=== PATIENT | female | born 1965 | race Caucasian/White ===

== ENCOUNTER 2023-10-27 20:07 | Outpatient (REF) | payer OTHER, SELFPAY ==
[2023-11-02 10:10] LABS: Age Gdln ACOG Testing Note (.); HPV Aptima Negative (Negative); IGP, Aptima HPV, rfx 16/18,45 Note (.)
== END 2023-10-27 20:08 | disposition home or self-care (01) ==
LOC: LAB 20:07
PROVIDERS: Visit Provider Physician Assistant
DX: Z01.419 Encounter for gynecological examination (general) (routine) without abnormal findings (principal)
CPT/HCPCS: 87624; G0145

== ENCOUNTER 2024-11-06 20:13 | Outpatient (OUT) | payer OTHER, SELFPAY ==
[2024-11-09 10:11] LABS: Age Gdln ACOG Testing Note (.); HPV Aptima Negative (Negative); IGP, Aptima HPV, rfx 16/18,45 Note (.)
== END 2024-11-06 20:14 | disposition home or self-care (01) ==
PROVIDERS: Visit Provider Obstetrics & Gynecology
DX: Z01.419 Encounter for gynecological examination (general) (routine) without abnormal findings (principal)
CPT/HCPCS: 87624; 88175

== ENCOUNTER 2025-06-20 14:21 | Outpatient (OUT) | payer OTHER, SELFPAY ==
--- OUTSIDE RECORDS SUMMARY | 2025-06-20 14:26 | XMS_ITS | Clinical Summary ---
Author Organization [employer] tem Address [id number] [place] [address] Care Team Providers Care Physical Therapy Director Name Role Phone Alex Holguin MD Primary Care Provider [phone] Allergies Active Allergy Reactions Criticality Noted Date Comments Adhesive Tape-Silicones Dermatitis Medium 11/07/2018 Redness, irritation Zolpidem Palpitations High 07/29/2017 Amoxicillin-Pot Clavulanate Other (See Comments) Medium 12/09/2018 Yeast infection Medications LORazepam (ATIVAN) 0.5 mg tabletIndications:An xiety TAKE 1-2 TABLET BY MOUTH EVERY 12 HOURS NEEDED FOR ANXIETY 90 tablet 3 12/25/19 22 Active Additional Information Patient not taking.Reported on 05/17/2024 vit 10-iron fum-folic 65-1 mg tabletIndications:Mo rbid obesity (CMS-HCC),Preop testing Take 1 tablet by mouth in the morning. Wait to resume until after follow up with your surgeon. 90 tablet 3 05/19/20 23 Active acetaminophen (TYLENOL EXTRA STRENGTH) 500 mg tablet Take 2 tablets (1,000 mg total) by mouth every 6 (six) hours as needed for pain. 30 tablet 05/19/20 23 Active cholecalciferol, vitamin D3, 50,000 units tabletIndications:Po stsurgical malabsorption,Malnut rition following gastrointestinal surgery,History of bariatric surgery,Vitamin D deficiency Take 1 tablet (50,000 Units total) by mouth once a week. 12 tablet 05/24/20 23 Active CLARITIN REDITABS 10 mg disintegrating tablet DISSOLVE 1 TABLET (10 MG TOTAL) ON TONGUE IN THE MORNING. 30 tablet 2 06/11/20 23 Active amLODIPine (NORVASC) 5 mg tablet TAKE 1 TABLET (5 MG TOTAL) BY MOUTH IN THE MORNING 30 tablet 2 06/11/20 23 Active calcium citrate-vitamin D3 (CITRACAL+D) 315-200 mg-units per tablet Take 1 tablet by mouth in the morning and 1 tablet before bedtime. Active cyanocobalamin, vitamin B-12, (VITAMIN B-12 ORAL) Take by mouth. Active multivit-min/ferrous fumarate (MULTI VITAMIN ORAL) Take by mouth. A ctive simvastatin (ZOCOR) 20 mg tablet Take 1 tablet (20 mg total) by mouth in the morning. Active potassium gluconate 600 mg (99 mg) tablet Take 1 each by mouth in the morning. Active biotin 1,000 mcg tablet,chewable Chew and swallow. Active vit 10-iron fum-folic 65-1 mg tabletIndications:Ma lnutrition following gastrointestinal surgery,Postsurgical malabsorption,Histor y of sleeve gastrectomy Take 1 tablet by mouth in the morning. 90 tablet 3 05/17/20 24 Active Active Problems Problem Noted Date Diagnosed Date Malnutrition following gastrointestinal surgery 08/16/2023 Postsurgical malabsorption 08/16/2023 History of bariatric surgery 08/16/2023 Acute post-operative pain 05/19/2023 Morbid obesity due to excess calories 05/18/2023 Morbid obesity 05/05/2023 Other chest pain 04/09/2022 BPPV (benign paroxysmal positional vertigo) 12/30 Hearing loss 01/08/2021 Tinnitus of both ears 01/08/2021 Spasm of muscle of lower back 12/27/2019 Annual physical exam 12/27/2019 Acute non-recurrent maxillary sinusitis 11/02/19 20 Congestion of both ears 11/02/2019 Thyroid mass 08/07/2019 Overview (08/07/2019): Pt request repeat US end of year before proceeding with BX Lymphedema of right arm 08/02/2019 Overview (08/02/2019): Post breast cancer surgery CINV (chemotherapy-induced nausea and vomiting) 12/20/2018 Malignant neoplasm of right female breast 2018 Recurrent breast cancer 10/17/2018 Vitamin D deficiency 07/29/2017 Iron deficiency anemia due to chronic blood loss 07/29/2017 Malignant neoplasm of upper- inner quadrant of right female breast 02/15/2017 Cancer Staging:Clinical: Unsigned Anxiety Obesity Peripheral neuropathy Allergic rhinitis Resolved Problems Problem Noted Date Diagnosed Date Resolved Date Left ventricular failure 09/19/2019 Overview (09/19/2019): Onset Date: Feb 17, 2016 Breast carcinoma 11/08/2018 01/04/2020 Acute pain of right shoulder 11/07/2018 08/04/2019 Acute pain of right knee 11/07/201801/2019 Prolonged emergence from general anesthesia 01/04/2020 Immunizations Immunization Administration Dates Next Due COVID-19, mRNA, LNP-S, PF, 1 00mcg/0.5mL Dose 12/18/2020,11/20/2020 Hep B, Adolescent or Pediatric 01/14/2015,2013,07/16/2014 Influenza, Injectable, quadrivalent (PF) 022,08/20/2021 Influenza, Unspecified 10/19/2018 Pneumococcal Polysaccharide 01/24/2018 Family History Medical History Relation Name Comments Cancer Father Bladder and par otid Diabetes Father Heart disease Father Hypertension Father Pancreatic cancer Father Prostate cancer Father Skin cancer Father Basal and squam ous Cancer Maternal Grandfather Brain cancer Mother Mets from breas t cancer Breast cancer Mother Prostate cancer Paternal Grandfather Heart disease Paternal Grandmother Anesthesia problems Neg Hx Bleeding Disorder Neg Hx Clotting disorder Neg Hx Colon cancer Neg Hx Ovarian cancer Neg Hx Stroke Neg Hx Relation Name Status Comments Father Maternal Grandfather Maternal Grandmother Mother Paternal Grandfather Paternal Grandmother Sister Alive Social History Tobacco Use Types Packs/Day Years Used Date Smoking Tobacco: Former Cigarettes 1 2 0 05/01/1996 - 05/01/1998 Smokeless Tobacco: Never Tobacco Cessation:Counseling Given: No Alcohol Use Standard Drinks/Week Comments Not Currently 0 (1 standard drink = 0.6 oz pur e alcohol) monthly -2 monthly Social Connection and Isolation Panel [NHANES] A nswer Date Recorded In a typical week, how many times do you talk on the phone with family, friends, or neighbors? Three times a week 11/18/19 21 Frequency of Social Gatherin gs with Friends and Family Not on file 11/18/2020 How often do you attend chur ch or oriental orthodox services? Never 11/18/2020 Active Member of Clubs or Organizations Not on f ile 11/18/2020 How often do you attend meet ings of the clubs or organizations you belong to? 1 to 4 times per year 11/18/2020 Marital Status Not on file 11/18/2020 AUDIT-C Answer Date Recorded Q1: How often do you have a drink containing alc ohol? Monthly or less 05/18/2023 Q2: How many drinks containi ng alcohol do you have on a typical day when you are drinking? 1 or 2 05/18/2023 Q3: How often do you have si x or more drinks on one occasion? Never 05/18/2023 Overall Financial Resource Strain (CARDIA) Answe r Date Recorded How hard is it for you to pa y for the very basics like food, housing, medical care, and heating? Not very hard 05/17/2023 PHQ-2 Answer Date Recorded Total Score 2 05/18/2023 [facility] - Occupational Stress Questionnaire Answer Date Recorded Feeling of Stress Rather much 04/25/2019 Exercise Vital Sign Answer Date Recorde d On average, how many days pe r week do you engage in moderate to strenuous exercise (like a brisk walk)? 0 days 11/18/2020 On average, how many minutes do you engage in exercise at this level? 0 min 11/18/2020 PRAPARE - Transportation Answer Date Re corded In the past 12 months, has l ack of transportation kept you from medical appointments or from getting medications? No 05/01 In the past 12 months, has l ack of transportation kept you from meetings, work, or from getting things needed for daily living? No 05/17/2023 Housing Instability Answer Date Recorde d Are you worried or concerned that in the next two months you may not have stable housing that you own, rent or stay in as a part of a household? No 05/17/2023 Childcare Answer Date Recorded Do problems getting child ca re make it difficult for you to work or study? No 11/18/2020 Employment Answer Date Recorded Do you need help finding a [facility] and/or a training program? No 11/18/2020 Hunger Screening Answer Date Recorded Within the past 12 months we worried whether our food would run out before we got money to buy more. Never True 05/17/2024 Within the past 12 months th e food we bought just didn't last and we didn't have money to get more. Never True 05/17/2024 Purpose - Life Answer Date Recorded I have a purpose and direction in my life. Stron gly Agree 11/18/2020 Education Answer Date Recorded What is the highest level of school you have completed or the highest degree you have received? Associate degree: occupational, technical, or vocational program 04/25/2019 Comments No Sex and Gender Information Value Date Recorded Sex Assigned at Female 09/16/2021 8:56 AM EST Legal Sex Female 11:27 AM EDT Gender Identity Female 09/16/2021 8:56 AM EST Sexual Orientation Straight 09/16/2021 8: 56 AM EST Last Filed Vital Signs Vital Sign Reading Time Taken Comments Blood Pressure 118/72 05/17/2024 2:00 PM EDT Pulse 83 05/17/2024 2:00 PM EDT Temperature 36.3 C (97.3 F) 05/17/2024 2:00 PM EDT Respiratory Rate 15 12/09/2023 8:23 AM EST Oxygen Saturation 99% 12/09/2023 8:23 AM EST Inhaled Oxygen Concentration - - Weight 121.7 kg (268 lb 4.8 oz) 05/17/2024 2:00 PM EDT Height 169.5 cm (5' 6.73 ) 05/17/2024 2:00 PM ED T Body Mass Index 42.36 05/17/2024 2:00 PM EDT Plan of Treatment Health Maintenance Due Date Last Done Comments DTaP,Tdap and Td Vaccines (1 - Tdap) 1986 Zoster (Shingles) Vaccine (1 of 2) 1986 Pap Smear 1988 Colonoscopy 2012 Depression Screening 05/18/2024 05/18/2023 COVID-19 Vaccine (4 - 2023-2 5 season) 2024 10/07/2021, 12/18/2020, 11/20/2020 Adult BMI Screening 05/17/2025 05/17/2024 Tobacco Screening 05/17/2025 05/17/2024 Influenza Vaccine 07/02/2025 08/26/2023, , 08/20/2021, Additional history exists Goals Goal Patient Goal Type Associated Problems Recent Progress Patient-Stated? Author safe discharge General Yes Lakeshia Farah LSW Note: Evaluation of progress towards goal: [email or web address] was added to patient's AVS to assist patient with choosing a local counselor through their online directory. Medical Devices Implanted Type Area Tool Room Lathe Operator Device Identifier Shelf Expiration Date Model / Serial / Lot Lens Iol Ultrasert 15.0d - [id number] - [id number] Implanted:Qty: 1 on 06/13/2020 by Tamika Kamara MD at [facility] Lens Right: Eye [employer] 12/01/2021 AU00T0 15.0 / [id number] / Lens Iol Ultrasert 15.0d - [id number] - [id number] Implanted:Qty: 1 on 06/27/2020 by Tamika Kamara MD at [facility] Lens Left: Eye [employer] 03/14/2023 AU00T0 15.0 / [id number] / NA Port Power Mri W/Open Ended 8f R Pls Ca - [id number] - [id number] Implanted:Qty: 1 on 12/08/2018 by Demetrio Mathews DO at [facility] Port Left: Chest Wall [employer] 03/31/2020 [id number] / [id number] / [id number] Advance Directives * Full Code (Latest Code Status on File) Date Activated Date Inactivated Comments 05/18/2023 2:35 PM 05/20/2023 1:13 AM Care Teams Physical Therapy Director Relationship Specialty Start Date End Date Alex Holguin MD PCP - General Family Medicine 03/24/23
--- OUTSIDE RECORDS SUMMARY | 2025-06-20 14:26 | XMS_ITS | Encounter Summary ---
[facility] Address [id number] [address] [place] [address] Care Team Providers Care Computerized Mill Mill Recorder Name Role Phone Alex Holguin MD Primary Care Provider [phone] Reason for Referral * Diagnostic Imaging (Routine) - Closed Specialty Diagnoses / Procedures Referred By Contac t Referred To Contact Radiology Diagnoses Malignant neoplasm of upper-inner quadrant of right breast in female, estrogen receptor positive (CMS-HCC) Procedures CT chest with contrast Pedro Pradhan MD [address] [place] [id number] Phone: tel: fax: [facility] [address] [place] [address] Phone: tel: Referral ID Status Reason Start Date Expiration Date Visits Re quested Visits Authorized [id number] Closed 04/09/2022 04/09/2023 1 1 Encounter Details Date Type Department Care Team (Late st Contact Info) Description 04/09/2022 Orders Only [facility] - Medical Oncology [facility] [place] [address] Lay Tinoco, ANUM Malignant neoplasm of upper-inner quadrant of right breast in female, estrogen receptor positive (CMS-HCC) (Primary Dx) Social History Tobacco Use Types Packs/Day Years Used Date Smoking Tobacco: Former Cigarettes 1 2 0 05/01/1996 - 05/01/1998 Smokeless Tobacco: Never Alcohol Use Standard Drinks/Week Comments Yes 0 (1 standard drink = 0.6 oz pur e alcohol) monthly Social Connection and Isolation Panel [NHANES] A nswer Date Recorded In a typical week, how many times do you talk on the phone with family, friends, or neighbors? Three times a week 11/18/19 21 Frequency of Social Gatherin gs with Friends and Family Not on file 11/18/2020 How often do you attend chur ch or muslim services? Never 11/18/2020 Active Member of Clubs or Organizations Not on f ile 11/18/2020 How often do you attend meet ings of the clubs or organizations you belong to? 1 to 4 times per year 11/18/2020 Marital Status Not on file 11/18/2020 AUDIT-C Answer Date Recorded Frequency of Alcohol Consumption Monthly or less 04/25/2019 Average Number of Drinks 1 or 2 019 Frequency of Binge Drinking Never 04/02 Overall Financial Resource Strain (CARDIA) Answe r Date Recorded How hard is it for you to pa y for the very basics like food, housing, medical care, and heating? Not hard at all 11/18/2020 PHQ-2 Answer Date Recorded Total Score 0 05/14/2021 [facility] [place] of Occupat ional Health - Occupational Stress [...] PRAPARE - Transportation Answer Date Re corded Lack of Transportation (Medical) No 04/25/2019 Lack of Transportation (Non-Medical) No 04/25/2019 Childcare Answer Date Recorded Do problems getting child ca re make it difficult for you to work or study? No 11/18/2020 Employment Answer Date Recorded Do you need help finding a l al career center and/or a training program? No 11/18/2020 Purpose - Life Answer Date Recorded I [...] Orientation Straight 09/16/2021 8: 56 AM EST COVID-19 Exposure Response Date Recorded In the last 10 days, have yo u been in contact with someone who was confirmed or suspected to have Coronavirus/COVID-19? No / Unsure 04/09/2022 3:14 PM EDT documented as of this encounter Plan of Treatment Not on file documented as of this encounter Results * CT chest with contrast (04/14/2022 3:58 PM EDT) Anatomical Region Laterality Modality Lung, Chest, Body Covera N/A Compute d Tomography 04/15/2022 8:36 AM EDT Narrative 04/15/2022 8:51 AM EDT History: PT STATES THAT SHE HAS HAD DOUBLE MASECTOMY WITH RADIATION AND CHEMO - PRESENTLY IS HAVING RT SIDED PRIMARILY AND MID CENTERED CHEST PAIN Exam/Technique: Contiguous axial images are obtained of the chest with 69 mL Visipaque 320 intravenous contrast. Coronal and sagittal reconstructions were performed and reviewed. Automated exposure control utilized. Comparison: 12/06/[address] Findings: The previously described focus of tree-in-bud tiny nodularity lateral aspect of the right middle lobe is redemonstrated, unchanged from greater than 2 years ago consistent with benign etiology. This likely relates to mild chronic scarring. No pulmonary infiltrate or pleural effusion. Otherwise, no pulmonary nodules or mass lesions. No mediastinal or hilar lymphadenopathy. The visualized subdiaphragmatic structures appear intact. Bridging osteophytes are seen in the anterior dorsal spine with ossification of the anterior longitudinal ligament, overall features of DISH. No lytic or blastic bony lesion. No acute bony abnormality. Left-sided central venous port is noted. IMPRESSION: No CT evidence for metastatic disease in the chest. No acute abnormalities. Previously seen and described focal tree-in-bud nodularity lateral aspect of the right middle lobe is redemonstrated, unchanged from 12/06/2027 consistent with benign etiology, likely mild focal scarring. Otherwise, chronic/incidental findings as described above. All CT scans at this facility use dose modulation, iterative reconstruction, and/or weight based dosing when appropriate to reduce radiation dose to as low as reasonably achievable. Finalized by Keyon Cerrato MD on 04/15/2022 8:51 AM Procedure Note Keyon Cerrato MD - 04/15/2022 History: PT STATES THAT SHE HAS HAD DOUBLE MASECTOMY WITH RADIATION ANDCHEMO - PRESENTLY IS HAVING RT SIDED PRIMARILY AND MID CENTERED CHESTPAIN Exam/Technique: Contiguous axial images are obtained of the chest with69 mL Visipaque 320 intravenous contrast. Coronal and sagittalreconstructions were performed and reviewed. Automated exposure controlutilized. Comparison: 12/06/[address] Findings: The previously described focus of tree-in-bud tiny nodularity lateralaspect of the right middle lobe is redemonstrated, unchanged from [facility] 2 years ago consistent with benign etiology. This likely relates to mild chronic scarring. No pulmonary infiltrate or pleural effusion. Otherwise, no pulmonarynodules or mass lesions. No mediastinal or hilar lymphadenopathy. The visualized subdiaphragmatic structures appear intact. Bridging osteophytes are seen in the anterior dorsal spine withossification of the anterior longitudinal ligament, overall features ofDISH. No lytic or blastic bony lesion. No acute bony abnormality. Left-sided central venous port is noted. IMPRESSION: No CT evidence for metastatic disease in the chest. No acuteabnormalities. Previously seen and described focal tree-in-bud nodularity lateral aspectof the right middle lobe is redemonstrated, unchanged from 12/06/2027consistent with benign etiology, likely mild focal scarring. Otherwise, chronic/incidental findings as described above. All CT scans at this facility use dose modulation, iterativereconstruction, and/or weight based dosing when appropriate to reduceradiation dose to as low as reasonably achievable. Finalized by Keyon Cerrato MD on 04/15/2022 8:51 AM Pedro Pradhan MD IMG CT ORDERABLES Final Result documented in this encounter Visit Diagnoses Diagnosis Malignant neoplasm of upper-inner quadrant of right breast in female, estrogen receptor positive (CMS-HCC)- Primary Malignant neoplasm of upper-inner quadrant of right breast in female, estrogen receptor positive (CMS-HCC) documented in this encounter Additional Health Concerns Assessment Noted Time PHQ-9 Depression Total Score: 0 05/14/20 21 3:00 PM EDT A Body Mass Index follow-up plan has been documented for the patient 12/30/2019 11:51 PM EST documented as of this encounter Care Teams Computerized Mill Mill Recorder Relationship Specialty Start Date End Date Alex Holguin MD PCP - General Family Medicine 03/24/23 documented as of this encounter
--- OUTSIDE RECORDS SUMMARY | 2025-06-20 14:26 | XMS_ITS | Encounter Summary ---
Author Organization [employer] [facility] tem Address [id number] [address] [place] [address] Care Team Providers Care Millinery Salesperson Name Role Phone Alex Holguin MD Primary Care Provider [phone] Reason for Visit * Reason Comments Med Refill Encounter Details Date Type Department Care Team (Late st Contact Info) Description 03/23/2019 Refill Taniya [facility] - Medical Oncology [address] [place] [phone] Tuyet Pitts, CARD WRITER HAND-REAL ESTATE SERVICES ADMINISTRATOR [address] [place] [address] Chemotherapy-induced peripheral neuropathy (CMS-HCC) Social History Tobacco Use Types Packs/Day Years Used Date Smoking Tobacco: Former Cigarettes 1 2 0 05/01/1996 - 05/01/1998 Smokeless Tobacco: Never Alcohol Use Standard Drinks/Week Comments Yes 0 (1 standard drink = 0.6 oz pur e alcohol) monthly PHQ-2 Answer Date Recorded PHQ-2 Score 0 10/21/2018 Childcare Answer Date Recorded Childcare Unknown 01/20/2019 Employment Answer Date Recorded Employment Unknown 01/20/2019 Comments No Sex and Gender Information Value Date Recorded Sex Assigned at Female 09/16/2021 8:56 AM EST Legal Sex Female 11:27 AM EDT Gender Identity Female 09/16/2021 8:56 AM EST Sexual Orientation Straight 09/16/2021 8: 56 AM EST documented as of this encounter Plan of Treatment Not on file documented as of this encounter Visit Diagnoses Diagnosis Chemotherapy-induced peripheral neuropathy documented in this encounter Additional Health Concerns Infection Onset Date Last Indicated Resolved Time COVID-19 Rule-Out 10/11/2020 10/11/2020 10/12/2020 1:16 AM EST Assessment Noted Time PHQ-9 Depression Total Score: 0 03/15/20 4:00 PM EDT A Body Mass Index follow-up plan has been documented for the patient 11/07/2018 7:00 PM EST documented as of this encounter Care Teams Millinery Salesperson Relationship Specialty Start Date End Date Alex Holguin MD PCP - General Family Medicine 03/24/23 documented as of this encounter
--- OUTSIDE RECORDS SUMMARY | 2025-06-20 14:26 | XMS_ITS | Encounter Summary ---
Author Organization [facility] tem Address [id number] [address] [place] [address] Care Team Providers Care Social Service Liaison Name Role Phone Alex Holguin MD Primary Care Provider [phone] Reason for Visit * Reason Comments Med Refill Encounter Details Date Type Department Care Team (Late st Contact Info) Description 01/13/2022 Refill [facility] [address] [place] [address] Tuyet Pitts, COAL TOWER OPERATOR-CLIENT INSIGHTS CONSULTANT [address] [facility] [place] [id number] Tinea corporis Social History Tobacco Use Types Packs/Day Years [...] often do you attend chur ch or roman catholic services? Never 11/18/2020 Active Member of Clubs [...] Answer Date Recorded Total Score 0 05/14/2021 [facility] of Occupat ional Health - Occupational Stress [...] Recorded Do you need help finding a [facility] career center and/or a training program? No [...] as of this encounter Visit Diagnoses Diagnosis Tinea corporis Dermatophytosis of the body documented in this encounter Additional Health Concerns Assessment Noted Time PHQ-9 Depression Total Score: 0 05/14/20 21 3:00 PM EDT A Body Mass Index follow-up plan has been documented for the patient 12/30/2019 11:51 PM EST documented as of this encounter Care Teams Social Service Liaison Relationship Specialty Start Date End Date Alex Holguin MD PCP - General Family Medicine 03/24/23 documented as of this encounter
--- OUTSIDE RECORDS SUMMARY | 2025-06-20 14:26 | XMS_ITS | Encounter Summary ---
Author Organization [facility] Address [facility] [id number] [address] [place] [address] Care Team Providers Care Scooping Machine Tender Name Role Phone Alex Holguin MD Primary Care Provider [phone] Reason for Visit * Reason Comments Med Refill Encounter Details Date Type Department Care Team (Late st Contact Info) Description 06/11/2019 Refill [facility] [address] [place] [address] [phone] Nakia Nunez, DO [address] [place] [address] Strain of right shoulder, initial encounter Social History Tobacco Use Types Packs/Day Years Used Date Smoking Tobacco: Former Cigarettes 1 2 0 05/01/1996 - 05/01/1998 Smokeless Tobacco: Never Alcohol Use Standard Drinks/Week Comments Yes 0 (1 standard drink = 0.6 oz pur e alcohol) monthly Social Connection and Isolat ion Panel [NHANES] Answer Date Recorded Frequency of Communication w ith Friends and Family More than three times a week 04/25/2019 Frequency of Social Gatherin gs with Friends and Family Once a week 04/25/2019 Attends Denominational Services 1 to 4 times per year 04/25/2019 Active Member of Clubs or Organizations Yes 04/25/2019 Attends Club or Organization Meetings More than 4 times per year 04/25/2019 Marital Status 04/25/2019 AUDIT-C Answer Date Recorded Frequency of Alcohol Consumption Monthly or less 04/25/2019 Average Number of Drinks 1 or 2 019 Frequency of Binge Drinking Never 04/02 Overall Financial Resource Strain (CARDIA) Answe r Date Recorded Difficulty of Paying Living Expenses Somewhat phill[address] 04/25/2019 PHQ-2 Answer Date Recorded PHQ-2 Score 11 04/25/2019 [facility] of Occupat ional Health - Occupational Stress Questionnaire Answer Date Recorded Feeling of Stress Rather much 04/25/2019 Exercise Vital Sign Answer Date Recorde d Days of Exercise per Week 5 days 2018 Minutes of Exercise per Session 150+ min 04/25/2019 PRAPARE - Transportation Answer Date Re corded Lack of Transportation (Medical) No 04/25/2019 Lack of Transportation (Non-Medical) No 04/25/2019 Childcare Answer Date Recorded Childcare No 04/25/2019 Employment Answer Date Recorded Employment No 04/25/2019 Education Answer Date Recorded What is the [...] as of this encounter Visit Diagnoses Diagnosis Strain of right shoulder, initial encounter documented in this encounter Additional Health Concerns Infection Onset Date Last Indicated Resolved Time COVID-19 Rule-Out 10/11/2020 10/11/2020 10/12/2020 1:16 AM EST Assessment Noted Time PHQ-9 Depression Total Score: 11 019 12:08 PM EDT A Body Mass Index follow-up plan has been documented for the patient 11/07/2018 7:00 PM EST documented as of this encounter Care Teams Scooping Machine Tender Relationship Specialty Start Date End Date Alex Holguin MD PCP - General Family Medicine 03/24/23 documented as of this encounter
--- OUTSIDE RECORDS SUMMARY | 2025-06-20 14:26 | XMS_ITS | Encounter Summary ---
Author Organization [facility] Address [facility] [place][id number] [address] [place] [address] Care Team Providers Care Hospital Pharmacy Technician Name Role Phone Alex Holguin MD Primary Care Provider [phone] Encounter Details Date Type Department Care Team (Late st Contact Info) Description 11/09/2018 Documentation [facility] [address] [place] [address] Bernice Cedeno, SHADE MAKER-NAVY MATERIAL INSPECTOR [address] [place], [place] [id number] Social History Tobacco Use Types Packs/Day Years Used Date Smoking Tobacco: Former Cigarettes 1 2 0 05/01/1996 - 05/01/1998 Smokeless Tobacco: Never Alcohol Use Standard Drinks/Week Comments Yes 0 (1 standard drink = 0.6 oz pur e alcohol) monthly PHQ-2 Answer Date Recorded PHQ-2 Score 0 10/21/2018 Comments No Sex and Gender Information Value Date Recorded Sex Assigned at Female 09/16/2021 8:56 AM EST Legal Sex Female 11:27 AM EDT Gender Identity Female 09/16/2021 8:56 AM EST Sexual Orientation Straight 09/16/2021 8: 56 AM EST documented as of this encounter Plan of Treatment Not on file documented as of this encounter Visit Diagnoses Not on filedocumented in this encounter Additional Health Concerns Infection Onset Date Last Indicated Resolved Time COVID-19 Rule-Out 10/11/2020 10/11/2020 10/12/2020 1:16 AM EST Assessment Noted Time PHQ-9 Depression Total Score: 0 11/07/19 19 4:00 PM EST A Body Mass Index follow-up plan has been documented for the patient 11/07/2018 7:00 PM EST documented as of this encounter Care Teams Hospital Pharmacy Technician Relationship Specialty Start Date End Date Alex Holguin MD PCP - General Family Medicine 03/24/23 documented as of this encounter
--- OUTSIDE RECORDS SUMMARY | 2025-06-20 14:26 | XMS_ITS | Encounter Summary ---
Author Organization [facility] Address [facility] [place]-[id number] [address] [place] [address] Care Team Providers Care Stone Circular Sawyer Name Role Phone Alex Holguin MD Primary Care Provider [phone] Reason for Visit * Reason Comments Med Refill Encounter Details Date Type Department Care Team (Late st Contact Info) Description 08/23/2019 Refill [facility] [address] [place] [phone] Nakia Nunez, DO [address] [place] [address] Strain of right shoulder, initial [...] and Family Once a week 04/25/2019 Attends [facility] Services 1 to 4 times per year [...] 04/25/2019 PHQ-2 Answer Date Recorded PHQ-2 Score 0 08/02/2019 [facility] [place] of Occupat ional Health - Occupational Stress [...] Noted Time PHQ-9 Depression Total Score: 0 08/02/20 19 3:00 PM EDT A Body Mass Index follow-up plan has been documented for the patient 11/07/2018 7:00 PM EST documented as of this encounter Care Teams Stone Circular Sawyer Relationship Specialty Start Date End Date Alex Holguin MD PCP - General Family Medicine 03/24/23 documented as of this encounter
--- OUTSIDE RECORDS SUMMARY | 2025-06-20 14:26 | XMS_ITS | Encounter Summary ---
Author Organization [employer] [facility] Address [facility] [id number] [address] [place] [address] Care Team Providers Care Procurement Internship Name Role Phone Alex Holguin MD Primary Care Provider [phone] Reason for Visit * Reason Comments Med Refill Encounter Details Date Type Department Care Team (Late st Contact Info) Description 05/30/2020 [facility]ill [facility] [address] [place] [phone] Tuyet Pitts, RUBBER MIXER-ASSOCIATE SOFTWARE APPLICATION ENGINEER [address] [facility] [facility] [address] [place] [id number] Lymphedema Social History Tobacco Use Types Packs/Day Years [...] and Family Once a week 04/25/2019 Attends [employer] Services 1 to 4 times per year [...] Answer Date Recorded PHQ-2 Score 0 08/02/2019 [facility] [place] of Occupat ional Health - Occupational Stress [...] Exposure Response Date Recorded In the last month, have you been in contact with someone who was confirmed or suspected to have Coronavirus / COVID-19? No / Unsure 05/23/2020 2:23 PM EDT documented as of this encounter Plan of Treatment Not on file documented as of this encounter Visit Diagnoses Diagnosis Lymphedema Other noninfectious lymphedema documented in this encounter Additional Health Concerns Infection Onset Date Last Indicated Resolved Time COVID-19 Rule-Out 10/11/2020 10/11/2020 10/12/2020 1:16 AM EST Assessment Noted Time PHQ-9 Depression Total Score: 0 12/27/19 20 5:05 PM EST A Body Mass Index follow-up plan has been documented for the patient 12/30/2019 11:51 PM EST documented as of this encounter Care Teams Procurement Internship Relationship Specialty Start Date End Date Alex Holguin MD PCP - General Family Medicine 03/24/23 documented as of this encounter
--- OUTSIDE RECORDS SUMMARY | 2025-06-20 14:26 | XMS_ITS ---
Author Organization [employer] [facility] Address [facility] [place][id number] [address] [place] [address] Care Team Providers Care Diet Attendant Name Role Phone Alex Holguin MD Primary Care Provider [phone] Active Problems Problem Noted Date Diagnosed Date [...] Unsigned Anxiety Obesity Peripheral neuropathy Allergic rhinitis Current Treatment and Therapy Plans ADULT ONCOLOGY/INFUSION CENTER FLUSH ORDERS* Plan Start Date:04/14/2022 Plan Provider:Pedro Pradhan MD Linked Problems Malignant neoplasm of upper- inner quadrant of right breast in female, estrogen receptor positive ([facility]) Treatment Medications No medications scheduled. OP breast trastuzumab / PACLitaxel/ followed by HP maintenance* Plan Start Date: 12/12/2018 Plan Provider:Pedro Pradhan MD Linked Problems Malignant neoplasm of right female breast, unspecified estrogen receptor status, unspecified site of breast ([facility])CINV (chemotherapy-induced nausea and vomiting) Treatment Medications PACLItaxel (TAXOL) chemo IVP B piggybackpertuzumab (PERJETA) chemo IVPB piggybacktrastuzumab (HERCEPTIN) chemo IVPB piggyback Other Current Plans Iron sucrose (VENOFER)* Plan Start Date:11/17/2023 Plan Provider:Pedro Pradhan MD Linked Problems Iron deficiency anemia due t o chronic blood loss Treatment Medications No medications scheduled. Past Treatment and Therapy Plans FLUSHES Plan Name Start Date Discontinue Date Treatment Medications Discontinue Reason Plan Provider ADULT ONCOLOGY FLUSH ORDERS 05/19/2017 04/09/2022 No medications scheduled. Other Tuyet Pitts, CLINICAL BUSINESS ANALYST-BIOSOLIDS MANAGEMENT TECHNICIAN Lifetime Dose Tracking * Chemical Lifetime Dose Automatic Entry Manual Entr y Fluoroscopy 40.6 mGy 40.6 mGy 0 mGy Resolved Problems Problem Noted Date Diagnosed Date Resolved Date Left ventricular failure 09/19/2019 Overview (09/19/2019): Onset Date: Feb 17, 2016 Breast carcinoma 11/08/2018 01/04/2020 Acute pain of right shoulder 11/07/2018 08/04/2019 Acute pain of right knee 11/07/201801/2019 Prolonged emergence from general anesthesia 01/04/2020
--- OUTSIDE RECORDS SUMMARY | 2025-06-20 14:26 | XMS_ITS | Encounter Summary ---
Author Organization [facility] Address [facility] [place]-[id number] [address] [place] [address] Care Team Providers Care Floor Runner Name Role Phone Alex Holguin MD Primary Care Provider [phone] Encounter Details Date Type Department Care Team (Late st Contact Info) Description 09/09/2022 [facility]phone [facility] [address] [phone] Evelyn Hines, [place] Social History Tobacco Use Types Packs/Day Years [...] often do you attend chur ch or mormonism services? Never 11/18/2020 Active Member of Clubs [...] Answer Date Recorded Total Score 0 05/14/2021 [facility] - Occupational Stress Questionnaire Answer Date Recorded [...] Recorded Do you need help finding a [employer] career center and/or a training program? No [...] AM EST documented as of this encounter Miscellaneous Notes * Telephone Encounter - Evelyn Hines CMA - 09/09/2022 2:56 PM EST FYI Staff Patient will be having her PCP forward referral. She is requesting to have a colonoscopy. - Per patient states she has never had a colonoscopy performed. - She had to cancel due to other health condition being a priority. Thank You documented in this encounter Plan of Treatment Not on file documented as of this encounter Visit Diagnoses Not on filedocumented in this encounter Additional Health Concerns Assessment Noted Time PHQ-9 Depression Total Score: 0 05/14/20 21 3:00 PM EDT A Body Mass Index follow-up plan has been documented for the patient 12/30/2019 11:51 PM EST documented as of this encounter Care Teams Floor Runner Relationship Specialty Start Date End Date Alex Holguin MD PCP - General Family Medicine 03/24/23 documented as of this encounter
--- OUTSIDE RECORDS SUMMARY | 2025-06-20 14:26 | XMS_ITS | Encounter Summary ---
Author Organization [employer] [facility] Address [facility] [place]-[id number] [address] [place] [address] Care Team Providers Care Trimmer Climber Name Role Phone Alex Holguin MD Primary Care Provider [phone] Reason for Visit * Reason Comments Med Refill Encounter Details Date Type Department Care Team (Late st Contact Info) Description 05/13/2022 Refill [facility] - Medical Oncology [address] [place] [address] Tuyet Pitts, CHEESEMAKER HELPER-ALGEBRA TEACHER [address] [facility] [place] [phone] Social History Tobacco Use Types Packs/Day Years [...] often do you attend chur ch or protestant services? Never 11/18/2020 Active Member of Clubs [...] Answer Date Recorded Total Score 0 05/14/2021 [facility] of Occupat ional Health - Occupational Stress [...] Recorded Do you need help finding a [employer] career center and/or a training program? No [...] have Coronavirus / COVID-19? No / Unsure 04/14/2022 8:11 AM EDT documented as of this encounter Plan [...] documented as of this encounter Care Teams Trimmer Climber Relationship Specialty Start Date End Date Alex Holguin MD PCP - General Family Medicine 03/24/23 documented as of this encounter
--- OUTSIDE RECORDS SUMMARY | 2025-06-20 14:27 | XMS_ITS | Encounter Summary ---
Author Organization [employer] s tem Address [facility] [place] [place]-[id number] [address] [place] [address] Care Team Providers Care Credit Collections Manager Name Role Phone Alex Holguin MD Primary Care Provider [phone] Encounter Details Date Type Department Care Team (Late st Contact Info) Description 12/16/2020 Orders Only [facility]ani[facility] Greer [facility] - Medical Oncology [address] [place] [address] Pedro Pradhan MD [address] [place] [address] Malignant neoplasm of upper-inner quadrant of right female breast ([facility]) Social History Tobacco Use Types Packs/Day Years [...] often do you attend chur ch or latter-day services? Never 11/18/2020 Active Member of Clubs [...] 11/18/2020 PHQ-2 Answer Date Recorded Total Score 6 11/18/2020 [facility] of Occupat ional Health - Occupational Stress [...] Recorded Do you need help finding a [employer] career center and/or a training program? No [...] have Coronavirus / COVID-19? No / Unsure 12/16/2020 2:05 PM EST documented as of this encounter Plan of Treatment Not on file documented as of this encounter Procedures Procedure Name Priority Date/Time Associated Diagnosis Comments CBC WITH AUTO DIFFERENTIAL Routine 12/16/2020 3:15 PM EST Malignant neoplasm of upper-inner quadrant of right female breast (CMS-HCC) COMPREHENSIVE METABOLIC PANEL Routine 12/16/2020 3:15 PM EST Malignant neoplasm of upper-inner quadrant of right female breast (CMS-HCC) documented in this encounter Results * Comprehensive metabolic panel (12/16/2020 3:15 PM EST) Sodium 139 134 - 146 mmol/L 12/16/2020 4:56 PM [facility] Potassium, Bld 3.8 3.5 - 5.0 mmol/L 12/16/2020 4:56 PM [facility] Chloride 101 98 - 109 mmol/L 12/16/2020 4:56 PM [facility] CO2 30 22 - 32 mmol/L 12/16/2020 4:56 PM [facility] Anion gap 8 5 - 15 mmol/L 12/16/2020 4:56 PM [facility] BUN 17 5 - 23 mg/dL 12/16/2020 5:03 PM [facility] Creatinine 0.73 0.40 - 1.00 mg/dL 12/16/2020 5:03 PM [facility] Comment:METHOD TRACEABLE TO IDMS STANDARD Glucose 90 65 - 99 mg/dL 12/16/2020 4:56 PM [facility] Calcium 8.9 8.5 - 10.5 mg/dL 12/16/2020 4:56 PM [facility] Total Protein 7.1 6.0 - 8.0 g/dL 12/16/2020 5:03 PM [facility] Albumin 3.9 3.2 - 5.3 g/dL 12/16/2020 5:03 PM [facility] Alkaline Phosphatase 87 39 - 130 U/L 12/16/2020 5:03 PM [facility] AST 17 0 - 41 U/L 12/16/2020 5:03 PM [facility] ALT 15 0 - 31 U/L 12/16/2020 5:03 PM [facility] Total bilirubin 0.3 0.3 - 1.2 mg/dL 12/16/2020 5:03 PM [facility] GFR MDRD Non Af Amer >60 >59 ml/min/1.7 3sq.m 12/16/2020 5:03 PM [facility] GFR MDRD Af Amer >60 >59 ml/min/1.7 3sq.m 12/16/2020 5:03 PM [facility] Serum / Unknown 12/16/2020 3 :15 PM EST 12/16/2020 3:19 PM EST us Pedro Pradhan MD LAB BLOOD ORDERABLES Final Resul t [address], [place] [address] * (ABNORMAL) CBC auto differential (12/16/2020 3:15 PM EST) White Blood Cells 6.6 4.0 - 11.0 X10E9/L 12/16/2020 3:22 PM [facility] RBC count 5.15 3.80 - 5.20 X10E12/L 12/16/2020 3:22 PM [facility] Hemoglobin 12.6 11.7 - 15.5 g/dL 12/16/2020 3:22 PM [facility] Hematocrit 38.7 35 - 47 % 12/16/2020 3:22 PM [facility] MCV 75(L) 80 - 100 fL 12/16/2020 3:22 PM [facility] MCH 24.4(L) 27 - 34 pg 12/16/2020 3:22 PM [facility] MCHC 32.5 32 - 36 g/dL 12/16/2020 3:22 PM [facility] RDW 16.6(H) 11.5 - 15.0 % 12/16/2020 3:22 PM [facility] Platelets 224 150 - 450 X10E9/L 12/16/2020 3:22 PM [facility] MPV 7.9 7 - 12 fL 12/16/2020 3:22 PM [facility] % neutrophils 66.1 % 12/16/2020 3:22 PM [facility] % lymphocytes 21.9 % 12/16/2020 3:22 PM [facility] % monocytes 8.1 % 12/16/2020 3:22 PM [facility] % eosinophils 3.1 % 12/16/2020 3:22 PM [facility] % Basophils 0.8 % 12/16/2020 3:22 PM [facility] Neutrophils Absolute (A) 4.3 1.5 - 6.6 X10E9/L 12/16/2020 3:22 PM [facility] Lymphocytes Absolute 1.4 1.0 - 3.5 X10E9/L 12/16/2020 3:22 PM [facility] Monocytes Absolute 0.5 0 - 0.9 X10E9/L 12/16/2020 3:22 PM [facility] Eosinophils Absolute 0.2 0.0 - 0.4 X10E9/L 12/16/2020 3:22 PM [facility] Basophils Absolute 0.1 0.0 - 0.2 X10E9/L 12/16/2020 3:22 PM [facility] Serum / Unknown 12/16/2020 3 :15 PM EST 12/16/2020 3:19 PM EST us Pedro Pradhan MD LAB BLOOD ORDERABLES Edited Resu lt - Final [facility] [address] [place] [address] documented in this encounter Visit Diagnoses Diagnosis Malignant neoplasm of upper-inner quadrant of right female breast (CMS-HCC) documented in this encounter Additional Health Concerns Assessment Noted Time PHQ-9 Depression Total Score: 6 11/18/19 21 3:24 PM EST A Body Mass Index follow-up plan has been documented for the patient 12/30/2019 11:51 PM EST documented as of this encounter Care Teams Credit Collections Manager Relationship Specialty Start Date End Date Alex Holguin MD PCP - General Family Medicine 03/24/23 documented as of this encounter
--- OUTSIDE RECORDS SUMMARY | 2025-06-20 14:27 | XMS_ITS | Encounter Summary ---
Author Organization [employer] s tem Address [facility] [id number] [address] [place] [address] Care Team Providers Care Straight Knife Cutter Machine Name Role Phone Alex Holguin MD Primary Care Provider [phone] Encounter Details Date Type Department Care Team (Late st Contact Info) Description 11/29/2020 Orders Only Taniya Greer [facility] - Medical Oncology [address] [place] [address] Pedro Pradhan MD [address] [place] [address] Neuropathy due to chemotherapeutic drug ([facility]) Social History Tobacco Use Types Packs/Day [...] often do you attend chur ch or gnosticism services? Never 11/18/2020 Active Member of Clubs [...] Answer Date Recorded Total Score 6 11/18/2020 [facility] of Occupat ional Health [...] Recorded Do you need help finding a [employer] career center and/or a training program? No [...] have Coronavirus / COVID-19? No / Unsure 11/19/2020 3:11 PM EST documented as of this encounter Plan of Treatment Not on file documented as of this encounter Visit Diagnoses Diagnosis Neuropathy due to chemotherapeutic drug documented in this encounter Additional Health Concerns Assessment Noted Time PHQ-9 Depression Total Score: 6 11/18/19 21 3:24 PM EST A Body Mass Index follow-up plan has been documented for the patient 12/30/2019 11:51 PM EST documented as of this encounter Care Teams Straight Knife Cutter Machine Relationship Specialty Start Date End Date Alex Holguin MD PCP - General Family Medicine 03/24/23 documented as of this encounter
--- OUTSIDE RECORDS SUMMARY | 2025-06-20 14:27 | XMS_ITS | Encounter Summary ---
Author [facility] Address [facility] [id number] [address] [place] [address] Care Team Providers Care Project Assistant Name Role Phone Alex Holguin MD Primary Care Provider [phone] Encounter Details Date Type Department Care Team (Late st Contact Info) Description 09/19/2020 Orders Only [facility] [address] [place] [address] Pedro Pradhan MD [address] [place] [address] Anxiety (Primary Dx); Malignant neoplasm of upper-inner quadrant of right female breast (CMS-HCC) Social History Tobacco Use Types Packs/Day [...] and Family Once a week 04/25/2019 Attends [facility] 1 to 4 times per year [...] Answer Date Recorded PHQ-2 Score 0 08/02/2019 [facility] [place] of Occupat ional Health - Occupational Stress [...] have Coronavirus / COVID-19? No / Unsure 09/19/2020 8:02 AM EST documented as of this encounter Plan of Treatment Not on file documented as of this encounter Visit Diagnoses Diagnosis Anxiety- Primary Anxiety state, unspecified Malignant neoplasm of upper-inner quadrant of right [...] documented as of this encounter Care Teams Project Assistant Relationship Specialty Start Date End Date Alex Holguin MD PCP - General Family Medicine 03/24/23 documented as of this encounter
--- OUTSIDE RECORDS SUMMARY | 2025-06-20 14:27 | XMS_ITS | Encounter Summary ---
Author Organization [facility] Address [address] [place] [address] Care Team Providers Care Director Part Name Role Phone Alex Holguin MD Primary Care Provider [phone] Encounter Details Date Type Department Care Team (Late st Contact Info) Description 05/07/2015 Post-op Telephone [facility] [address] [place], [place] [id number] Carla Angel RN Social History Tobacco Use Types Packs/Day Years Used Date Smoking Tobacco: Former Cigarettes 1 12 0 04/15/1986 - 04/15/1998 Smokeless Tobacco: Never Alcohol Use Standard Drinks/Week Comments No 0 (1 standard drink = 0.6 oz pur e alcohol) Comments No Sex and Gender Information Value Date Recorded Sex Assigned at Not on file Legal Sex Female 5:26 PM EDT Gender Identity Not on file Sexual Orientation Not on file documented as of this encounter Plan of Treatment Not on file documented as of this encounter Visit Diagnoses Not on filedocumented in this encounter Care Teams Director Part Relationship Specialty Start Date End Date Alex Holguin MD [address] [place] [address] PCP - General 04/15/15 documented as of this encounter
--- OUTSIDE RECORDS SUMMARY | 2025-06-20 14:27 | XMS_ITS | Encounter Summary ---
Author Organization [facility] Address [address] [place] [address] Care Team Providers Care Plate Inspector Name Role Phone Alex Holguin MD Primary Care Provider [phone] Encounter Details Date Type Department Care Team (Late st Contact Info) Description 11/16/2024 Orders Only [facility] CHOUDHARY [address] [place] [phone] Sahara Austin MA [address] [place] [address] Social History Tobacco Use Types Packs/Day Years Used Date Smoking Tobacco: Never Smokeless Tobacco: Never Alcohol Use Standard Drinks/Week Comments Not Currently 0 (1 standard drink = 0.6 oz pure alcohol) Holidays and a couple times a year AUDIT-C Answer Date Recorded Q1: How often do you have a drink containing alc ohol? Monthly or less 10/22/2023 Q2: How many drinks containi ng alcohol do you have on a typical day when you are drinking? 1 or 2 10/22/2023 Frequency of Binge Drinking Not on file 10/02 Comments No Sex and Gender Information Value Date Recorded Sex Assigned at Female 06/09/2023 6:49 PM EDT Legal Sex Female 8:14 PM EDT Gender Identity Female 06/09/2023 6:49 PM EDT Sexual Orientation Straight 06/09/2023 6: 49 PM EDT documented as of this encounter Plan of Treatment Upcoming Encounters Date Type Department Care Team (Late st Contact Info) Description 11/12/2025 4:00 PM EST Office Visit [facility] CHOUDHARY [address] [place] [address] Colton López DO [address] [place] [address] documented as of this encounter Procedures Procedure Name Priority Date/Time Associated Diagnosis Comments PAP SMEAR Routine 11/06/2024 12:00 AM EST documented in this encounter Results * Pap Smear (11/06/2024 12:00 AM EST) Swab Cervical swab / Unknown us Colton López DO LAB CYTOLOGY ORDERABLES Final Re sult EXTERNAL LAB documented in this encounter Visit Diagnoses Not on filedocumented in this encounter Care Teams Plate Inspector Relationship Specialty Start Date End Date Alex Holguin MD PCP - General Family Medicine 06/10/23 documented as of this encounter
--- OUTSIDE RECORDS SUMMARY | 2025-06-20 14:27 | XMS_ITS | Encounter Summary ---
Author Organization [employer] Address [id number] [address] [place] [address] Care Team Providers Care Process Control Specialist Name Role Phone Alex Holguin MD Primary Care Provider [phone] Reason for Visit * Reason Comments Med Refill Encounter Details Date Type Department Care Team (Late st Contact Info) Description 02/05/2020 Refill Taniya Greer [facility] - Medical Oncology [address] [place] [phone] Pedro Pradhan MD [address] [place] [address] Social History Tobacco Use Types Packs/Day Years [...] and Family Once a week 04/25/2019 Attends [employer] Services 1 to 4 times per year [...] Answer Date Recorded PHQ-2 Score 0 08/02/2019 [facility] [place] of Occupat ional Health - Occupational Stress [...] have Coronavirus / COVID-19? No / Unsure 02/05/2020 8:08 AM EDT documented as of this encounter [...] documented as of this encounter Care Teams Process Control Specialist Relationship Specialty Start Date End Date Alex Holguin MD PCP - General Family Medicine 03/24/23 documented as of this encounter
--- OUTSIDE RECORDS SUMMARY | 2025-06-20 14:27 | XMS_ITS | Encounter Summary ---
Author Organization [employer] Address [facility] [id number] [address] [place] [address] Care Team Providers Care Extruding Press Adjuster Name Role Phone Alex Holguin MD Primary Care Provider [phone] Reason for Visit * Reason Comments Med Refill Encounter Details Date Type Department Care Team (Late st Contact Info) Description 09/30/2020 Refill Taniya Greer [facility] - Medical Oncology [address] [place] [phone] Pedro Pradhan MD [address] [place], [place] [id number] Malignant neoplasm of upper-inner quadrant of right breast in female, estrogen receptor positive (CMS-HCC); Recurrent malignant neoplasm of right breast (CMS-HCC) Social History Tobacco Use Types [...] and Family Once a week 04/25/2019 Attends [employer] Services 1 to 4 times per year [...] Answer Date Recorded PHQ-2 Score 0 08/02/2019 [facility] of Occupat ional Health - Occupational [...] have Coronavirus / COVID-19? No / Unsure 10/03/2020 8:27 AM EST documented as of this encounter Plan of Treatment Not on file documented as of this encounter Visit Diagnoses Diagnosis Malignant neoplasm of upper-inner quadrant of right breast in female, estrogen receptor positive (CMS-HCC) Recurrent malignant neoplasm of right breast (CMS-HCC) documented in this encounter Additional Health Concerns Infection Onset Date Last Indicated Resolved Time COVID-19 Rule-Out 10/11/2020 10/11/2020 10/12/2020 1:16 AM EST Assessment Noted Time PHQ-9 Depression Total Score: 0 12/27/19 20 5:05 PM EST A Body Mass Index follow-up plan has been documented for the patient 12/30/2019 11:51 PM EST documented as of this encounter Care Teams Extruding Press Adjuster Relationship Specialty Start Date End Date Alex Holguin MD PCP - General Family Medicine 03/24/23 documented as of this encounter
--- OUTSIDE RECORDS SUMMARY | 2025-06-20 14:27 | XMS_ITS | Encounter Summary ---
Author Organization [facility] Address [address] [place] [address] Care Team Providers Care Watch Engine Operator Name Role Phone Alex Holguin MD Primary Care Provider [phone] Encounter Details Date Type Department Care Team (Late st Contact Info) Description 06/10/2023 Abstract [facility] [address] [place] [phone] Rajeev Bass, DPM [address] [place], [place] [phone] Social History Tobacco Use Types Packs/Day Years Used Date Smoking Tobacco: Never Smokeless Tobacco: Never Alcohol Use Standard Drinks/Week Comments Not Currently 0 (1 standard drink = 0.6 oz pure alcohol) Holidays and a couple times a year Comments Unknown Sex and Gender Information Value Date Recorded Sex Assigned at Female 06/09/2023 6:49 PM EDT Legal Sex Female 8:14 PM EDT Gender Identity Female 06/09/2023 6:49 PM EDT Sexual Orientation Straight 06/09/2023 6: 49 PM EDT COVID-19 Exposure Response Date Recorded In the last 10 days, have yo u been in contact with someone who was confirmed or suspected to have Coronavirus/COVID-19? No / Unsure 06/09/2023 6:57 PM EDT documented as of this encounter Plan of Treatment Upcoming Encounters Date Type Department Care Team (Late st Contact Info) Description 11/12/2025 4:00 PM EST Office Visit DAVID CHOUDHARY [address] [place] [address] Colton López DO [address] [place] [address] documented as of this encounter Visit Diagnoses Not on filedocumented in this encounter Care Teams Watch Engine Operator Relationship Specialty Start Date End Date Alex Holguin MD PCP - General Family Medicine 06/10/23 documented as of this encounter
--- OUTSIDE RECORDS SUMMARY | 2025-06-20 14:27 | XMS_ITS | Encounter Summary ---
Author Organization [facility] Address [facility] [place][id number] [address] [place] [address] Care Team Providers Care Grocery Clerk Stocking Name Role Phone Alex Holguin MD Primary Care Provider [phone] Reason for Visit * Reason Comments Med Refill Encounter Details Date Type Department Care Team (Late st Contact Info) Description 03/10/2018 Refill [facility] [address] [place] [phone] Tuyet Pitts, VOYAGE MANAGEMENT SYSTEM OPERATOR-INWEAVER [address] [place] [address], [address] [place] [address] Malignant neoplasm of upper-inner quadrant of right breast in female, estrogen receptor positive (HCC); Anxiety; Neuropathy due to chemotherapeutic drug (HCC) Social History Tobacco Use Types Packs/Day Years Used Date Smoking Tobacco: Former Cigarettes 1 2 0 05/01/1996 - 05/01/1998 Smokeless Tobacco: Never Alcohol Use Standard Drinks/Week Comments Yes 0 (1 standard drink = 0.6 oz pur e alcohol) sometimes Comments No Sex and Gender Information Value [...] breast in female, estrogen receptor positive (CMS-HCC) Anxiety Anxiety state, unspecified Neuropathy due to chemotherapeutic drug documented in this encounter Additional Health Concerns Infection Onset Date Last Indicated Resolved Time COVID-19 Rule-Out 10/11/2020 10/11/2020 10/12/2020 1:16 AM EST Assessment Noted Time PHQ-9 Depression Total Score: 0 01/25/20 18 3:00 PM EDT A Body Mass Index follow-up plan has been documented for the patient 02/01/2018 4:06 PM EDT documented as of this encounter Care Teams Grocery Clerk Stocking Relationship Specialty Start Date End Date Alex Holguin MD PCP - General Family Medicine 03/24/23 documented as of this encounter
--- OUTSIDE RECORDS SUMMARY | 2025-06-20 14:27 | XMS_ITS | Encounter Summary ---
Author Organization [employer] Address [facility] [place]-[id number] [address] [place] [address] Care Team Providers Care Prepper Name Role Phone Alex Holguin MD Primary Care Provider [phone] Encounter Details Date Type Department Care Team (Late st Contact Info) Description 01/14/2021 Orders Only Taniya Greer [facility] - Medical Oncology [address] [place] [address] Pedro Pradhan MD [address] [place] [address] Malignant neoplasm of upper-inner quadrant of right female breast ([facility]-HCC) Social History Tobacco [...] often do you attend chur ch or restoration services? Never 11/18/2020 Active Member of Clubs [...] Answer Date Recorded Total Score 6 11/18/2020 [facility] of Occupat ional Health - Occupational Stress [...] Recorded Do you need help finding a [employer] career center and/or a training program? No [...] have Coronavirus / COVID-19? No / Unsure 01/14/2021 8:08 AM EDT documented as of this encounter Plan of Treatment Not on file documented as of this encounter Procedures Procedure Name Priority Date/Time Associated Diagnosis Comments CBC WITH AUTO DIFFERENTIAL Routine 01/14/2021 12:36 PM EDT Malignant neoplasm of upper-inner quadrant of right female breast (CMS-HCC) COMPREHENSIVE METABOLIC PANEL Routine 01/14/2021 12:36 PM EDT Malignant neoplasm of upper-inner quadrant of right female breast (CMS-HCC) documented in this encounter Results * (ABNORMAL) CBC auto differential (01/14/2021 12:36 PM EDT) White Blood Cells 7.2 4.0 - 11.0 X10E9/L 01/14/2021 1:45 PM [facility] RBC count 4.86 3.80 - 5.20 X10E12/L 01/14/2021 1:45 PM [facility] Hemoglobin 11.7 11.7 - 15.5 g/dL 01/14/2021 1:45 PM [facility] Hematocrit 36.3 35 - 47 % 01/14/2021 1:45 PM [facility] MCV 75(L) 80 - 100 fL 01/14/2021 1:45 PM [facility] MCH 24.2(L) 27 - 34 pg 01/14/2021 1:45 PM [facility] MCHC 32.3 32 - 36 g/dL 01/14/2021 1:45 PM [facility] RDW 16.3(H) 11.5 - 15.0 % 01/14/2021 1:45 PM [facility] Platelets 205 150 - 450 X10E9/L 01/14/2021 1:45 PM [facility] MPV 8.2 7 - 12 fL 01/14/2021 1:45 PM [facility] % neutrophils 68.1 % 01/14/2021 1:45 PM [facility] % lymphocytes 19.7 % 01/14/2021 1:45 PM [facility] % monocytes 7.2 % 01/14/2021 1:45 PM [facility] % eosinophils 4.2 % 01/14/2021 1:45 PM EDT [facility] % Basophils 0.8 % 01/14/2021 1:45 PM EDT [facility] Neutrophils Absolute (A) 4.9 1.5 - 6.6 X10E9/L 01/14/2021 1:45 PM EDT [facility] Lymphocytes Absolute 1.4 1.0 - 3.5 X10E9/L 01/14/2021 1:45 PM EDT [facility] Monocytes Absolute 0.5 0 - 0.9 X10E9/L 01/14/2021 1:45 PM EDT [facility] Eosinophils Absolute 0.3 0.0 - 0.4 X10E9/L 01/14/2021 1:45 PM EDT [facility] Basophils Absolute 0.1 0.0 - 0.2 X10E9/L 01/14/2021 1:45 PM EDT [facility] Serum / Unknown 01/14/2021 1 2:36 PM EDT 01/14/2021 1:26 PM EDT us Pedro Pradhan MD LAB BLOOD ORDERABLES Final Resul t [facility] [address] [place] [address] * Comprehensive metabolic panel (01/14/2021 12:36 PM EDT) Sodium 136 134 - 146 mmol/L 01/14/2021 4:44 PM EDT [facility] Potassium, Bld 4.4 3.5 - 5.0 mmol/L 01/14/2021 4:44 PM EDT [facility] Chloride 103 98 - 109 mmol/L 01/14/2021 4:44 PM EDT [facility] CO2 24 22 - 32 mmol/L 01/14/2021 4:44 PM EDT [facility] Anion gap 9 5 - 15 mmol/L 01/14/2021 4:44 PM EDT [facility] BUN 14 5 - 23 mg/dL 01/14/2021 4:48 PM EDT [facility] Creatinine 0.71 0.40 - 1.00 mg/dL 01/14/2021 4:48 PM EDT [facility] Comment:METHOD TRACEABLE TO IDMS STANDARD Glucose 94 65 - 99 mg/dL 01/14/2021 4:44 PM EDT [facility] Calcium 8.8 8.5 - 10.5 mg/dL 01/14/2021 4:44 PM EDT [facility] Total Protein 7.0 6.0 - 8.0 g/dL 01/14/2021 4:48 PM EDT [facility] Albumin 3.8 3.2 - 5.3 g/dL 01/14/2021 4:48 PM EDT [facility] Alkaline Phosphatase 79 39 - 130 U/L 01/14/2021 4:48 PM T [facility] AST 16 0 - 41 U/L 01/14[facility]21 [facility] ALT 16 0 - 31 U/L 01/14/2021 4:48 PM [facility] Total bilirubin 0.3 0.3 - 1.2 mg/dL 01/14/2021 4:48 PM [facility] GFR MDRD Non Af Amer >60 >59 ml/min/1.7 3sq.m 01/14/2021 4:48 PM T [facility] GFR MDRD Af Amer >60 >59 ml/min/1.7 3sq.m 01/14/2021 4:48 PM [facility] Serum / Unknown 01/14/2021 1 2:36 PM EDT 01/14/2021 1:26 PM EDT us Pedro Pradhan MD LAB BLOOD ORDERABLES Final Resul t [address], [place] [address] documented in this encounter Visit Diagnoses Diagnosis Malignant neoplasm of upper-inner quadrant of right female breast (CMS-HCC) documented in this encounter Additional Health Concerns Assessment Noted Time PHQ-9 Depression Total Score: 6 11/18/19 21 3:24 PM EST A Body Mass Index follow-up plan has been documented for the patient 12/30/2019 11:51 PM EST documented as of this encounter Care Teams Prepper Relationship Specialty Start Date End Date Alex Holguin MD PCP - General Family Medicine 03/24/23 documented as of this encounter
--- OUTSIDE RECORDS SUMMARY | 2025-06-20 14:27 | XMS_ITS | Encounter Summary ---
Author Organization [facility] Address [facility] [id number] [address] [place] [address] Care Team Providers Care Compensation Programs Manager Name Role Phone Alex Holguin MD Primary Care Provider [phone] Reason for Visit * Reason Comments Med Refill Encounter Details Date Type Department Care Team (Late st Contact Info) Description 08/23/2023 Refill [facility]-B[facility]ric [address] [phone] Marilu Yoo MD [address] [place] [address] Social History Tobacco Use Types Packs/Day Years [...] often do you attend chur ch or scientologist services? Never 11/18/2020 Active Member of Clubs [...] Answer Date Recorded Total Score 2 05/18/2023 [facility] of Occupat ional Health - Occupational Stress [...] Recorded Do you need help finding a [facility] career center and/or a training program? No 11/18/2020 Hunger Screening Answer Date Recorded Within the past 12 months we worried whether our food would run out before we got money to buy more. Never True 08/16/2023 Within the past 12 months th e food we bought just didn't last and we didn't have money to get more. Never True 08/16/2023 Purpose - Life Answer Date Recorded I [...] on file documented as of this encounter Goals Goal Patient Goal Type Associated Problems Recent Progress Patient-Stated? Author safe discharge General Yes Lakeshia Farah LSW Note: Evaluation of progress towards goal: www.psychologytoday.E Ink was added to patient's AVS to assist patient with choosing a local counselor through their online directory. documented as of this encounter Visit Diagnoses Not on filedocumented in this encounter Additional Health Concerns Assessment Noted Time PHQ-9 Depression Total Score: 2 05/18/20 23 4:53 PM EDT A Body Mass Index follow-up plan has been documented for the patient 12/30/2019 11:51 PM EST documented as of this encounter Care Teams Compensation Programs Manager Relationship Specialty Start Date End Date Alex Holguin MD PCP - General Family Medicine 03/24/23 documented as of this encounter
--- OUTSIDE RECORDS SUMMARY | 2025-06-20 14:27 | XMS_ITS | Encounter Summary ---
Author Organization [facility] Address [facility] [id number] [address] [place] [address] Care Team Providers Care Cd Reactor Operator Name Role Phone Alex Holguin MD Primary Care Provider [phone] Reason for Visit * Reason Onset Date Comments Med Refill 04/10/2019 Encounter Details Date Type Department Care Team (Late st Contact Info) Description 04/10/2019 Refill [facility] [address] [place] [address] Parvin Nuñez CMA Social History Tobacco Use Types Packs/Day Years Used Date Smoking Tobacco: Former Cigarettes 1 2 0 05/01/1996 - 05/01/1998 Smokeless Tobacco: Never Alcohol Use Standard Drinks/Week Comments Yes 0 (1 standard drink = 0.6 oz pur e alcohol) monthly PHQ-2 Answer Date Recorded PHQ-2 Score 0 10/21/2018 Childcare Answer Date Recorded Childcare Unknown 04/04/2019 Employment Answer Date Recorded Employment Unknown 04/04/2019 Comments No Sex and Gender Information Value [...] documented as of this encounter Care Teams Cd Reactor Operator Relationship Specialty Start Date End Date Alex Holguin MD PCP - General Family Medicine 03/24/23 documented as of this encounter
--- OUTSIDE RECORDS SUMMARY | 2025-06-20 14:27 | XMS_ITS | Encounter Summary ---
Author Organization [employer] Address [facility] [place]-[id number] [address] [place] [address] Care Team Providers Care Parks Worker Name Role Phone Alex Holguin MD Primary Care Provider [phone] Reason for Visit * Reason Comments Med Refill Encounter Details Date Type Department Care Team (Late st Contact Info) Description 04/18/2019 Refill Taniya Greer [facility] - Medical Oncology [address] [place] [phone] Tuyet Pitts, GENERAL ROAD PRODUCTION MANAGER-LOCKER OPERATOR [address] [facility] [place] [address] Chemotherapy-induced peripheral neuropathy (CMS-HCC) Social History Tobacco [...] documented as of this encounter Care Teams Parks Worker Relationship Specialty Start Date End Date Alex Holguin MD PCP - General Family Medicine 03/24/23 documented as of this encounter
--- OUTSIDE RECORDS SUMMARY | 2025-06-20 14:27 | XMS_ITS | Encounter Summary ---
Author Organization [employer] Address [facility] [id number] [address] [place] [address] Care Team Providers Care Quality Auditor Name Role Phone Alex Holguin MD Primary Care Provider [phone] Encounter Details Date Type Department Care Team (Late st Contact Info) Description 09/05/2021 Orders Only Taniya Greer [facility] - Medical Oncology [address] [place] [address] Pedro Pradhan MD [address] [place] [address] Social History Tobacco Use Types Packs/Day Years [...] often do you attend chur ch or worship services? Never 11/18/2020 Active Member of Clubs [...] Answer Date Recorded Total Score 0 05/14/2021 [facility] of Occupat ional Health - Occupational [...] Recorded Do you need help finding a [employer] career center and/or a training program? No [...] have Coronavirus / COVID-19? No / Unsure 09/01/2021 11:22 AM EDT documented as of this encounter [...] documented as of this encounter Care Teams Quality Auditor Relationship Specialty Start Date End Date Alex Holguin MD PCP - General Family Medicine 03/24/23 documented as of this encounter
--- OUTSIDE RECORDS SUMMARY | 2025-06-20 14:27 | XMS_ITS | Clinical Summary ---
Author Organization [facility] Address [address], [address] [place] [address] Care Team Providers Care Project Archivist Name Role Phone Alex Holguin MD Primary Care Provider [phone] Allergies No known active allergies Medications etodolac (LODINE) 500 MG tablet Take 500 mg by mouth 3 times daily as needed Active olopatadine (PATADAY) 0.2 % SOLN ophthalmic solution 1 drop daily Active lansoprazole (PREVACID) 30 MG capsule 11 5 Active LORazepam (ATIVAN) 1 MG tablet Take 1 tablet by mouth every 6 hours as needed for Anxiety .Avoid driving if using this medication 60 tablet 2 5 Active lidocaine-prilo casimiro (EMLA) 2.5-2.5 % cream Apply topically to port site and cover with an occlusive dressing 1 hour before port use 1 Tube 2 5 Active BIOTIN MAXIMUM STRENGTH PO Take by mouth daily 3 tabs daily Active Active Problems Problem Noted Date Diagnosed Date Breast cancer, right breast 04/15/2015 Social History Tobacco Use Types Packs/Day Years Used Date Smoking Tobacco: Former Cigarettes 1 12 0 04/15/1986 - 04/15/1998 Smokeless Tobacco: Never Tobacco Cessation:Counseling Given: No Alcohol Use Standard Drinks/Week Comments No 0 (1 standard drink = 0.6 oz pur e alcohol) Comments No Sex and Gender Information Value Date Recorded Sex Assigned at Not on file Legal Sex Female 5:26 PM EDT Gender Identity Not on file Sexual Orientation Not on file Last Filed Vital Signs Vital Sign Reading Time Taken Comments Blood Pressure 124/54 11/29/2015 10:00 AM EST Pulse 91 11/29/2015 10:00 AM EST Temperature 36.3 C (97.4 F) 11/29/2015 8:20 AM EST Respiratory Rate 20 11/29/2015 10:00 AM EST Oxygen Saturation 96% 09/17/2015 7:54 AM EST Inhaled Oxygen Concentration - - Weight 156 kg (344 lb) 11/29/2015 8:20 AM EST Height 172.7 cm (5' 8 ) 10/15/2015 11:05 AM EST Body Mass Index 52.31 10/15/2015 11:05 AM EST Plan of Treatment Health Maintenance Due Date Last Done Comments Depression Screen 1979 HIV screen 1982 Hepatitis C screen 1985 DTaP/Tdap/Td vaccine (1 - Tdap) 1986 Hepatitis B vaccine (1 of 3 - 19+ 3-dose series) 1986 Pap smear 1988 Cervical cancer screen 1997 HPV (without or with Pap) 1997 Breast cancer screen 2007 Lipids 2007 Colonoscopy 2012 Colorectal Cancer Screen 2012 FIT/FOBT: Average risk 2012 Fecal-DNA (Cologuard): Average risk 2012 Sigmoidoscopy/CT colonography 2012 Shingles vaccine (1 of 2) 2017 Pneumococcal 50+ years Vaccine (2 of 2 - PCV) 01/24/2019 01/24/2018 COVID-19 Vaccine (3 - 2023-2 5 season) 2024 12/18/2020, 11/20/2020 Flu vaccine (#1) 06/01/2025 08/27/2022, 08/20/2021, 10/19/2018 Pneumococcal 0-49 years Vaccine Discontinued 01/24/2018 Hepatitis A vaccine Aged Out No longe r eligible based on patient's age to complete this topic Hib vaccine Aged Out No longer eligi ble based on patient's age to complete this topic Meningococcal (ACWY) vaccine Aged Out No longer eligible based on patient's age to complete this topic Meningococcal B vaccine Aged Out No l onger eligible based on patient's age to complete this topic Polio vaccine Aged Out No longer elig niki based on patient's age to complete this topic [place] * Full Code (Latest Code Status on File) Date Activated Date Inactivated Comments 09/16/2015 7:07 PM 09/17/2015 3:09 PM Care Teams Project Archivist Relationship Specialty Start Date End Date Alex Holguin MD [address] [place] [address] PCP - General 04/15/15
--- OUTSIDE RECORDS SUMMARY | 2025-06-20 14:27 | XMS_ITS | Encounter Summary ---
Author Organization [facility] Sys [facility] Address [id number] [address] [place] [address] Care Team Providers Care Steam Generating Powerplant Mechanic Name Role Phone Alex Holguin MD Primary Care Provider [phone] Encounter Details Date Type Department Care Team (Late st Contact Info) Description 12/19/2018 Documentation [facility] [address] [place] [address] Bernice Cedeno, ROSIN BARREL FILLER-FORM GRADER [address] [place], [place] [id number] Social History Tobacco Use Types Packs/Day Years [...] Noted Time PHQ-9 Depression Total Score: 0 11/21/19 19 11:00 AM EST A Body Mass Index follow-up plan has been documented for the patient 11/07/2018 7:00 PM EST documented as of this encounter Care Teams Steam Generating Powerplant Mechanic Relationship Specialty Start Date End Date Alex Holguin MD PCP - General Family Medicine 03/24/23 documented as of this encounter
--- OUTSIDE RECORDS SUMMARY | 2025-06-20 14:27 | XMS_ITS | Encounter Summary ---
Author Organization [facility] Address [id number] [address] [place] [address] Care Team Providers Care Food Processing Plant Manager Name Role Phone Alex Holguin MD Primary Care Provider [phone] Reason for Visit * Reason Comments Med Refill Encounter Details Date Type Department Care Team (Late st Contact Info) Description 06/22/2018 [facility] [address] [place] [phone] Tuyet Pitts, DISTRIBUTED GENERATION PROJECT MANAGER-PATHOLOGY LABORATORY TECHNOLOGIST [address] [place] [address] Malignant neoplasm of upper-inner quadrant of right [...] documented as of this encounter Care Teams Food Processing Plant Manager Relationship Specialty Start Date End Date Alex Holguin MD PCP - General Family Medicine 03/24/23 documented as of this encounter
--- OUTSIDE RECORDS SUMMARY | 2025-06-20 14:27 | XMS_ITS | Clinical Summary ---
Author Organization [facility] Address [address] [place] [address] Care Team Providers Care Body Engineer Name Role Phone Alex Holguin MD Primary Care Provider [phone] Allergies Active Allergy Reactions Criticality Noted Date Comments Zolpidem Palpitations High 06/11/2023 Amoxicillin-Pot Clavulanate 06/11/2023 Yeast Infection Wound Dressing Adhesive Dermatitis Medium 11/07/2018 Tegaderm- blister Redness, irritation Medications Iron-Vit C-Vit T97-Gomri Acid (IRON 100 PLUS PO) Take 1 each by mouth in the morning. 10/20/2022 Active acetaminophen (Tylenol) 500 MG tablet Take 1,000 mg by mouth every 6 (six) hours if needed for mild pain 05/19/2023 Active Potassium 99 MG tablet Take 1 each by mouth in the morning. Active Calcium Carb-Cholecalci ferol (CALCIUM 500 + D PO) Take 1 each by mouth in the morning. Active cyanocobalamin (Vitamin B-12) 100 MCG tablet Take 100 mcg by mouth in the morning. Active gabapentin (Neurontin) 600 MG tablet Take 1 capsule by mouth if needed (as needed) Active Family History Medical History Relation Name Comments Arthritis Father West Cancer Father West Diabetes Father West Heart disease Father West Hypertension Father [place] Arthritis Mother Janie Cancer Mother Janie Vision loss Mother Janie Cancer Other spouse Relation Name Status Comments Father West Mother Janie Other spouse Son Alive 3, healthy Social History Tobacco Use Types Packs/Day Years [...] Orientation Straight 06/09/2023 6: 49 PM EDT Last Filed Vital Signs Vital Sign Reading Time Taken Comments Blood Pressure 120/70 11/06/2024 4:41 PM EST Pulse - - Temperature - - Respiratory Rate - - Oxygen Saturation - - Inhaled Oxygen Concentration - - Weight 127 kg (280 lb) 11/06/2024 4:41 PM EST Height 170.2 cm (5' 7 ) 06/11/2023 8:33 AM EDT Body Mass Index 43.85 06/11/2023 8:33 AM EDT Plan of Treatment Upcoming Encounters Date Type Department Care Team (Late st Contact Info) Description 11/12/2025 4:00 PM EST Office Visit [facility] [address] [place] [phone] Colton López DO [address] [place] [address] Health Maintenance Due Date Last Done Comments CT Colonography 1965 Colonoscopy 1965 Colorectal Cancer Screening 1965 FIT-DNA 1967 FIT 1967 FOBT 1965 Sigmoidoscopy 1965 Mammogram 09/30/2019 09/30/2018, 10/27/2017, 10/02 Influenza Vaccine (#1) 2025 , 08/26/2023, 08/27/2022, Additional history exists Cervical Cancer Screening 11/06/2029 HPV/Cotest 11/06/2029 Pap Smear 11/06/2029 11/06/2024 Procedures Procedure Name Priority Date/Time Associated Diagnosis Comments PAP SMEAR Routine 11/06/2024 12:00 AM EST from Last 3 Months or Most Recently Relevant to Health Maintenance Results * Pap Smear (11/06/2024 12:00 AM EST) Swab Cervical swab / Unknown us Colton Maribel DO LAB CYTOLOGY ORDERABLES Final Re sult EXTERNAL LAB from Last 3 Months or Most Recently Relevant to Health Maintenance Insurance [employer] Care Teams Body Engineer Relationship Specialty Start Date End Date Alex Holguin MD PCP - General Family Medicine 06/10/23
--- NOTE | 2025-06-20 14:30 | XR_ITS ---
[place] [id number] Patient Name: HANNAH JUAREZ MRN: [id number] date: 1965 Sex: F Assigned Patient Location: [facility] Current Patient Location: [facility] Accession/Order Number: [id number] Exam Date: 06/20/2025 16:00 Report Date: 06/20/2025 16:02 At the request of: JESÚS MURGUIA MD Procedure: XR ankle RT min 3V 3 views right ankle plain film COMPARISON: None HISTORY: Chronic right ankle pain ACUTE FINDINGS: None DEGENERATIVE CHANGE: Marginal spurring. Chronic changes of the medial malleolus and tip of lateral malleolus. Possible prior trauma. Large posterior calcaneal enthesophyte. Cystic changes of the Achilles tendon. Tiny inferior calcaneal spur SOFT TISSUE FINDINGS: Unremarkable JOINT EFFUSION: None POSTOP CHANGES: None BONE MINERALIZATION: Adequate XR/XR ankle RT min 3V IMPRESSION: No acute findings. Degenerative and chronic changes. Large posterior Calcaneal spurring. Calcific changes of the Achilles tendon. Impression dictated by: Timothy Sargent M.D. 06/20/2025 4:02 PM Dictation Location: [facility] Electronically authenticated by: [id number] Y Date: 06/20/2025 16:02
--- NOTE | 2025-06-20 14:30 | XR_ITS ---
The [address] [address] Patient Name: HANNAH JUAREZ MRN: [id number] date: 1965 Sex: F Assigned Patient Location: [facility] Current Patient Location: Accession/Order Number: [id number] Exam Date: 06/21/2025 08:36 Report Date: 06/21/2025 08:37 At the request of: JESÚS MURGUIA MD Procedure: XR foot RT 2V 3 views right foot INDICATION: Right foot pain FINDINGS: No evidence acute fractures or dislocation. Mild degenerative changes. Sequelae of remote traumatic injury fifth metatarsal. Mild soft tissue swelling. Posterior calcaneal enthesopathy. XR/XR foot RT 2V IMPRESSION: Negative acute osseous abnormality. Mild degenerative change. Impression dictated by: Dante Izaguirre M.D. 06/21/2025 8:37 AM Dictation Location: [place] [address] Electronically authenticated by: [id number] Y Date: 06/21/2025 08:37
--- OUTSIDE RECORDS SUMMARY | 2025-06-20 14:35 | XMS_ITS | CCD ---
Author Organization [facility] Care Team Providers Care Lastex Thread Winder Name Role Phone PEDRO DOUGLAS Unavailable Unavailable Furlong, Gideon Mundo Unavailable Unavailab le PEDRO DOUGLAS Unavailable Unavailable Furlong, Gideon Mundo Unavailable Unavailab minerva LÓPEZ, DR GOEL Consulting Unavailable MARIBEL, DR GOEL Attending Unavailable MARIBEL, DR GOEL Admitting Unavailable PEDRO DOUGLAS Attending Unavailable HOY, JESÚS M Referring Unavailable HOY, JESÚS M Primary Care Unavailable HOY, JESÚS M Referring Unavailable HOY, JESÚS M Primary Care Unavailable HOY, JESÚS M Referring Unavailable HOY, JESÚS M Primary Care Unavailable HOY, JESÚS M Referring Unavailable HOY, JESÚS M Primary Care Unavailable HOY, JESÚS M Referring Unavailable HOY, JESÚS M Primary Care Unavailable HOY, JESÚS M Referring Unavailable HOY, JESÚS M Primary Care Unavailable PEDRO DOUGLAS Referring Unavailable HOY, JESÚS M Primary Care Unavailable HOY, JESÚS M Referring Unavailable HOY, JESÚS M Primary Care Unavailable HOY, JESÚS M Referring Unavailable HOY, JESÚS M Primary Care Unavailable HOY, JESÚS M Referring Unavailable HOY, JESÚS M Primary Care Unavailable PEDRO DOUGLAS Attending Unavailable HOY, JESÚS M Referring Unavailable HOY, JESÚS M Primary Care Unavailable INDIA TALAMANTES Referring Unavailable HOY, JESÚS M Primary Care Unavailable KATHY KIMBROUGH Attending Unavailable HOY, JESÚS M Referring Unavailable HOY, JESÚS M Primary Care Unavailable INDIA TALAMANTES Attending Unavailable HOY, JESÚS M Referring Unavailable HOY, JESÚS M Primary Care Unavailable Jesús Holguin MD Primary Care Provider MANASA LÓPEZ Attending Unavailable Radatz Jr, Edward Admitting Unavailable Dale Andino Jr Attending Unavailable NON STAFF Primary Care Unavailable Jesús Holguin Admitting Unavailable Jesús Holguin Primary Care Unavailable Jesús Holguin Attending Unavailable Dylan Harmon II Attending Unavaila ble Jesús Holguin Primary Care Unavailable Pedro Douglas Referring Unavailable Dylan Harmon II Admitting Unavaila ble Allergies Allergy Classification Reported Allergen(s) Allergy Type Date of Onset Reaction(s) Facility (8 sources) zolpidem; Translations: [ZOLPIDEM] Drug Allergy 7 Palpitations [facility] (2 sources) ADHESIVE TAPE-SILICONES; Translations: [ADHESIVE TAPE-SILICONES] Propensity to adverse reactions to drug (disorder) 9 [facility] (7 sources) AMOXICILLIN-POT CLAVULANATE; Translations: [AMOXICILLIN-PO T CLAVULANATE] Propensity to adverse reactions to drug (disorder) 9 [facility] (5 sources) Wound Dressing Adhesive Drug Intolerance 9 Dermatitis [facility] (1 source) Adhesive agent Drug allergy (disorder) 5 [facility] Repository (1 source) Amoxicillin Drug Allergy 5 [facility] (1 source) Clavulanate Drug Allergy 5 [facility] Medications Current Medications Medication Drug Class(es) Dates Sig (Normalized) Sig (Original) acetaminophen 500 mg oral tablet (5 sources) Start: 05-19-2023 take 2 tablets by mouth every six hours as needed for pain acetaminophen (Tylenol) 500 MG tablet Take 1,000 mg by mouth every 6 (six) hours if needed for mild pain 05/19/2023 Active Calcium Carb-Cholecalciferol (CALCIUM 500 + D PO) (5 sources) take 1 dose by mouth once daily in the morning Calcium Carb-Cholecalciferol (CALCIUM 500 + D PO) Take 1 each by mouth in the morning. Active gabapentin 600 mg oral tablet (4 sources) Anti-epileptic Agent gabapentin (Neurontin) 600 MG tablet Take 1 capsule by mouth if needed (as needed) Active Iron-Vit C-Vit N51-Xxyxf Acid (IRON 100 PLUS PO) (5 sources) Start: 10-20-2022 take 1 dose by mouth in the morning Iron-Vit C-Vit B83-Oaxaz Acid (IRON 100 PLUS PO) Take 1 each by mouth in the morning. 10/20/2022 Active potassium 99 mg extended release oral tablet (5 sources) take 1 tablet by mouth in the morning Potassium 99 MG tablet Take 1 each by mouth in the morning. Active vitamin b12 0.1 mg oral tablet (5 sources) Vitamin B12 take 1 tablet by mouth in the morning cyanocobalamin (Vitamin B-12) 100 MCG tablet Take 100 mcg by mouth in the morning. Active Problems Active Problems Problem Classification Problem Date Documented Date Episodic/Chronic Cancer of breast (2 sources) Malignant neoplasm of upper-inner quadrant of right female breast; Translations: [Malignant neoplasm of unspecified site of right female breast] Onset: 02-15-2017 Chronic Complications of surgical procedures or medical care (2 sources) Postsurgical malabsorption, not elsewhere classified; Translations: [Postsurgical malabsorption, not elsewhere classified] Onset: 08-16-2023 Chronic Deficiency and other anemia (1 source) Iron deficiency anemia secondary to blood loss (chronic); Translations: [Iron deficiency anemia secondary to blood loss (chronic)] Onset: 07-29-2017 Chronic Deficiency and other anemia (1 source) Anemia, unspecified; Translations: [Anemia, unspecified] Onset: 01-05-2025 Episodic Disorders of lipid metabolism (1 source) Hyperlipidemia, unspecified; Translations: [Hyperlipidemia, unspecified] Onset: 12-01-2024 Chronic Immunizations and screening for infectious disease (1 source) Encounter for screening for human papillomavirus (HPV); Translations: [ENC SCREENING HUMAN PAPILLOMAVIRUS] Onset: 09-28-2022 Episodic Nutritional deficiencies (1 source) Vitamin D deficiency, unspecified; Translations: [Vitamin D deficiency, unspecified] Onset: 07-29-2017 Chronic Other nutritional; endocrine; and metabolic disorders (1 source) Morbid (severe) obesity due to excess calories; Translations: [Morbid (severe) obesity due to excess calories] Onset: 05-05-2023 Chronic Other screening for suspected conditions (not mental disorders or infectious disease) (6 sources) Encounter for screening for malignant neoplasm of cervix; Translations: [Patient encounter status] Onset: 09-23-2022 Episodic Residual codes; unclassified (1 source) Acquired absence of stomach [part of]; Translations: [Acquired absence of stomach (part of)] Onset: 05-17-2024 Episodic Residual codes; unclassified (2 sources) Postmenopausal state; Translations: [Asymptomatic menopausal state] 11-06-2024 Episodic Thyroid disorders (1 source) Hypothyroidism, unspecified; Translations: [Hypothyroidism, unspecified] Onset: 10-28-2023 Chronic Unclassified (1 source) Labs Only Onset: 01-03-2024 Unclassified (1 source) Outpatient Infusion Onset: 11-17-2023 Unclassified (1 source) Port/VAD Care Onset: 10-28-2023 Past or Other Problems Problem Classification Problem Date Documented Da te Episodic/Chronic Malaise and fatigue (1 source) Other fatigue; Translations: [Other fatigue] Onset: 10-28-2023 Episodic Nutritional deficiencies (1 source) Iron deficiency; Translations: [Iron deficiency] Onset: 10-28-2023 Episodic Other gastrointestinal disorders (2 sources) Bariatric surgery status; Translations: [Bariatric surgery status] Onset: 08-16-2023 Episodic Other non-traumatic joint disorders (1 source) Pain in right shoulder; Translations: [Pain in right shoulder] Onset: 10-27-2023 Episodic Other non-traumatic joint disorders (1 source) Pain in left shoulder; Translations: [Pain in left shoulder] Onset: 10-27-2023 Episodic Other skin disorders (1 source) Nonscarring hair loss, unspecified; Translations: [Nonscarring hair loss, unspecified] Onset: 10-28-2023 Episodic Residual codes; unclassified (1 source) Estrogen receptor positive status [ER+]; Translations: [Estrogen receptor positive status (ER+)] Onset: 02-15-2017 Episodic Results Test Name Value Interpretation Reference Range Facility Complete Blood Count Auto Di ffon 12-01-2024 Basophils (Bld) [#/Vol] 0.0 10*3/uL Normal 0.0-0.2 [facility] Comment on above: Result Comment: PERF ORMED BY: [facility] [address] [place] [address] PATHOLOGIST MOLD DRESSER NORI PATEL M.D. Performed By: #### C BC, LIPID, THYROID SC, CMP, FE, [id number] #### [facility] [address] #### INSULIN #### [facility] , Basophils/100 WBC (Bld) 0.5 % Normal . [facility] Comment on above: Performed By: #### C BC, LIPID, THYROID SC, CMP, FE, [id number] #### [address] #### INSULIN #### [facility] , Eosinophils (Bld) [#/Vol] 0.1 10*3/uL Normal 0.0-0.45 [facility] Comment on above: Performed By: #### C BC, LIPID, THYROID SC, CMP, FE, [id number] #### [address] #### INSULIN #### [facility] , Eosinophils/100 WBC (Bld) 1.7 % Normal . [facility] Comment on above: Performed By: #### C BC, LIPID, THYROID SC, CMP, FE, [id number] #### [address] #### INSULIN #### [facility] , Erythrocyte distribution width (RBC) [Ratio] 13.7 % Normal 11.9-15.3 [facility] Comment on above: Performed By: #### C BC, LIPID, THYROID SC, CMP, FE, [id number] #### [place] [address] [place] #### INSULIN #### [facility] , Hematocrit (Bld) [Volume fraction] 37.7 % Normal 34.0-46.4 [facility] Comment on above: Performed By: #### C BC, LIPID, THYROID SC, CMP, FE, [id number] #### [place] [address] [place] #### INSULIN #### [facility] , Hemoglobin (Bld) [Mass/Vol] 12.7 g/dL Normal 11.8-15.4 [facility] Comment on above: Performed By: #### C BC, LIPID, THYROID SC, CMP, FE, [id number] #### [address] #### INSULIN #### [facility] , Lymphocytes (Bld) [#/Vol] 1.9 10*3/uL Normal 1.00-4.8 [facility] Comment on above: Performed By: #### C BC, LIPID, THYROID SC, CMP, FE, [id number] #### [address] #### INSULIN #### [facility] , Lymphocytes/100 WBC (Bld) 31.3 % Normal . [facility] Comment on above: Performed By: #### C BC, LIPID, THYROID SC, CMP, FE, [id number] #### [address] #### INSULIN #### [facility] , MCH (RBC) [Entitic mass] 27.9 pg Normal 24.7-34.3 [facility] Comment on above: Performed By: #### C BC, LIPID, THYROID SC, CMP, FE, [id number] #### [address] #### INSULIN #### [facility] , MCV (RBC) [Entitic vol] 82.6 fL Normal 80-100 [facility] Comment on above: Performed By: #### C BC, LIPID, THYROID SC, CMP, FE, [id number] #### [place] [address] [place] #### INSULIN #### [facility] , Mean Corpuscular HGB Conc 33.8 g/dL Normal 32.0-35.0 [facility] Comment on above: Performed By: #### C BC, LIPID, THYROID SC, CMP, FE, [id number] #### [place] [address] [place] #### INSULIN #### [facility] , Monocytes (Bld) [#/Vol] 0.5 10*3/uL Normal 0.0-0.8 [facility] Comment on above: Performed By: #### C BC, LIPID, THYROID SC, CMP, FE, [id number] #### [place] [address] [place] #### INSULIN #### [facility] , Monocytes/100 WBC (Bld) 7.7 % Normal . [facility] Comment on above: Performed By: #### C BC, LIPID, THYROID SC, CMP, FE, [id number] #### [address] #### INSULIN #### [facility] , Neutrophils (Bld) [#/Vol] 3.5 10*3/uL Normal 1.8-7.7 [facility] Comment on above: Performed By: #### C BC, LIPID, THYROID SC, CMP, FE, [id number] #### [place] [address] [place] #### INSULIN #### [facility] , Neutrophils/100 WBC (Bld) 58.8 % Normal . [facility] Comment on above: Performed By: #### C BC, LIPID, THYROID SC, CMP, FE, [id number] #### [place] [address] [place] #### INSULIN #### [facility] , NRBC% 0.1 /100{WBC} Normal 0-0.5 [facility] Comment on above: Performed By: #### C BC, LIPID, THYROID SC, CMP, FE, [id number] #### [place] [address] [place] #### INSULIN #### [facility] , Platelet mean volume (Bld) [Entitic vol] 8.4 fL Normal 6.3-10.7 [facility] Comment on above: Performed By: #### C BC, LIPID, THYROID SC, CMP, FE, [id number] #### [address] #### INSULIN #### [facility] , Platelets (Bld) [#/Vol] 207 10*3/uL Normal 150-450 [facility] Comment on above: Performed By: #### C BC, LIPID, THYROID SC, CMP, FE, [id number] #### [place] [address] [place] #### INSULIN #### [facility] , RBC (Bld) [#/Vol] 4.56 10*6/uL Normal 3.60-5.00 [facility] Comment on above: Performed By: #### C BC, LIPID, THYROID SC, CMP, FE, [id number] #### [address] #### INSULIN #### [facility] , WBC (Bld) [#/Vol] 6.0 10*3/uL Normal 3.8-11.6 [facility] Comment on above: Performed By: #### C BC, LIPID, THYROID SC, CMP, FE, [id number] #### [place] [address] [place] #### INSULIN #### [facility] , Comprehensive Metabolic Pane senthil 12-01-2024 Albumin [Mass/Vol] 4.1 g/dL Normal 3.5-5.7 [facility] Comment on above: Performed By: #### C BC, LIPID, THYROID SC, CMP, FE, [id number] #### [place] [address] [place] #### INSULIN #### [facility] , Albumin/Globulin [Mass ratio] 1.9 {ratio} Normal [facility] Comment on above: Performed By: #### C BC, LIPID, THYROID SC, CMP, FE, [id number] #### [facility] [address] [place] [address] [place] #### INSULIN #### [facility] , ALP [Catalytic activity/Vol] 83 U/L Normal 34-104 [facility] Comment on above: Performed By: #### C BC, LIPID, THYROID SC, CMP, FE, [id number] #### [facility] [address] [place] [address] #### INSULIN #### [facility] , ALT [Catalytic activity/Vol] 17 U/L Normal 7-52 [facility] Comment on above: Performed By: #### C BC, LIPID, THYROID SC, CMP, FE, [id number] #### [facility] [address] [place] [address] [place] #### INSULIN #### [facility] , Anion gap [Moles/Vol] 7.6 mmol/L Normal 6.0-15.0 [facility] Comment on above: Performed By: #### C BC, LIPID, THYROID SC, CMP, FE, [id number] #### [address] #### INSULIN #### [facility] , AST [Catalytic activity/Vol] 14 U/L Normal 13-39 [facility] Comment on above: Performed By: #### C BC, LIPID, THYROID SC, CMP, FE, [id number] #### [facility] [address] [place] [address] [place] #### INSULIN #### [facility] , Bilirubin [Mass/Vol] 0.3 mg/dL Normal 0.3-1.0 [facility] Comment on above: Performed By: #### C BC, LIPID, THYROID SC, CMP, FE, [id number] #### [facility] [address] [place] [address] #### INSULIN #### [facility] , Calcium [Mass/Vol] 9.4 mg/dL Normal 8.6-10.3 [facility] Comment on above: Performed By: #### C BC, LIPID, THYROID SC, CMP, FE, [id number] #### [facility] [address] [place] [address] [place] #### INSULIN #### [facility] , Chloride [Moles/Vol] 106 mmol/L Normal 98-107 [facility] Comment on above: Performed By: #### C BC, LIPID, THYROID SC, CMP, FE, [id number] #### [facility] [address] [place] [address] [place] #### INSULIN #### [facility] , CO2 [Moles/Vol] 31.6 mmol/L High 21.0-31.0 [facility] Comment on above: Performed By: #### C BC, LIPID, THYROID SC, CMP, FE, [id number] #### [address] #### INSULIN #### [facility] , Creatinine [Mass/Vol] 0.60 mg/dL Normal 0.60-1.20 [facility] Comment on above: Performed By: #### C BC, LIPID, THYROID SC, CMP, FE, [id number] #### [facility] [address] [place] [address] [place] #### INSULIN #### [facility] , GFR/1.73 sq M.predicted MDRD (S/P/Bld) [Vol rate/Area] mL/min/{1.73_m2} Normal [facility] Comment on above: Performed By: #### C BC, LIPID, THYROID SC, CMP, FE, [id number] #### [facility] [address] [place] [address] [place] #### INSULIN #### [facility] , Globulin (S) [Mass/Vol] 2.2 g/dL Normal [facility] Comment on above: Performed By: #### C BC, LIPID, THYROID SC, CMP, FE, [id number] #### [place] [address] [place] #### INSULIN #### [facility] , Glucose [Mass/Vol] 92 mg/dL Normal 70-100 [facility] Comment on above: Result Comment: [facility] Glucose Reference Range is dependent on time and content of last meal. Glucose of more than 200 mg/dL in a nonstressed, ambulatory subject supports the diagnosis of Diabetes Mellitus. ADA recommended reference range Performed By: #### C BC, LIPID, THYROID SC, CMP, FE, [id number] #### [address] #### INSULIN #### [facility] , Potassium [Moles/Vol] 4.2 mmol/L Normal 3.5-5.1 [facility] Comment on above: Performed By: #### C BC, LIPID, THYROID SC, CMP, FE, [id number] #### [place] [address] [place] #### INSULIN #### [facility] , Protein [Mass/Vol] 6.3 g/dL Low 6.4-8.9 [facility] Comment on above: Performed By: #### C BC, LIPID, THYROID SC, CMP, FE, [id number] #### [place] [address] [place] #### INSULIN #### [facility] , Sodium [Moles/Vol] 141 mmol/L Normal 136-145 [facility] Comment on above: Performed By: #### C BC, LIPID, THYROID SC, CMP, FE, [id number] #### [place] [address] [place] #### INSULIN #### [facility] , Urea nitrogen [Mass/Vol] 18 mg/dL Normal 7-25 [facility] Comment on above: Performed By: #### C BC, LIPID, THYROID SC, CMP, FE, [id number] #### [address] #### INSULIN #### [facility] , Insulinon 12-01-2024 Insulin 9.8 u[iU]/mL Normal 2.6-24.9 [facility] Comment on above: Result Comment: Perf ormed at: CB - [facility] [address] [id number] Grapple Skidder Operator: Arthur Lewis PhD, Phone: [phone] PERFORMED BY: [place] [address] PATHOLOGIST MOLD DRESSER NORI PATEL M.D. Performed By: #### C BC, LIPID, THYROID SC, CMP, FE, [id number] #### [address] #### INSULIN #### [facility] , Ironon 12-01-2024 Iron [Mass/Vol] 77 ug/dL Normal 50-212 [facility] Comment on above: Performed By: #### C BC, LIPID, THYROID SC, CMP, FE, [id number] #### [address] #### INSULIN #### [facility] , Lipid Panelon 12-01-2024 Cholesterol [Mass/Vol] 221 mg/dL High 140-200 [facility] Comment on above: Result Comment: Chol less than 200 mg/dl low risk Chol 201-239 mg/dl borderline risk Chol 240 mg/dl and greater high risk Performed By: #### C BC, LIPID, THYROID SC, CMP, FE, [id number] #### [address] #### INSULIN #### [facility] , Cholesterol in HDL [Mass/Vol] 52 mg/dL Normal 23-92 [facility] Comment on above: Result Comment: HDL CHOL ATP-III CLASSIFICATION Cardiovascular Risk HDL > or equal to 60 mg/dL LOW HDL < 40 mg/dL HIGH Performed By: #### C BC, LIPID, THYROID SC, CMP, FE, [id number] #### [address] #### INSULIN #### [facility] , Cholesterol.total/ Cholesterol in HDL [Mass ratio] 4.3 {ratio} Normal <5.0 [facility] Comment on above: Performed By: #### C BC, LIPID, THYROID SC, CMP, FE, [id number] #### [place] [address] [place] #### INSULIN #### [facility] , LDL Cholesterol,Calcul ated 120 mg/dL High 0-100 [facility] Comment on above: Result Comment: LDL ATP III CLASSIFICATION LDL less than 100 mg/dL Optimal LDL 100-129 mg/dL Near or above optimal LDL 130-159 mg/dL Borderline high LDL 160-189 mg/dL High LDL greater than 189 mg/dL Very high Performed By: #### C BC, LIPID, THYROID SC, CMP, FE, [id number] #### [address] #### INSULIN #### [facility] , Triglyceride w/Reflex 245 mg/dL High 0-149 [facility] Comment on above: Result Comment: TRIG ATP III CLASSIFICATION TRIG less than 150 mg/dL Normal TRIG 150-199 mg/dL Borderline high TRIG 200-500 mg/dL High TRIG greater than 500 mg/dL Very high Standard traceable to the Center for Disease Conrtrol and Prevention (CDC) test method. Performed By: #### C BC, LIPID, THYROID SC, CMP, FE, [id number] #### [place] [address] [place] #### INSULIN #### [facility] , VLDL CHOLESTEROL 49 mg/dL Normal [facility] Comment on above: Performed By: #### C BC, LIPID, THYROID SC, CMP, FE, [id number] #### [place] [address] [place] #### INSULIN #### [facility] , THYROID SCREENon 12-01-2024 Free T4 [Mass/Vol] 1.04 ng/dL Normal 0.61-1.12 [facility] Comment on above: Performed By: #### C BC, LIPID, THYROID SC, CMP, FE, [id number] #### [place] [address] [place] #### INSULIN #### [facility] , TSH Qn 4.21 m[IU]/L Normal 0.45-5.33 [facility] Comment on above: Performed By: #### C BC, LIPID, THYROID SC, CMP, FE, [id number] #### [place] [address] [place] #### INSULIN #### [facility] , Vitamin D 25 Hydroxy Totalon 12-01-2024 Vitamin D 25 Hydroxy Total 33.7 ng/mL Normal 30-100 [facility] Comment on above: Result Comment: JAMSHID MIN D STATUS 25(OH)VITAMIN D RANGE (ng/mL) Deficient <20 Insufficient 20 to <30 Sufficient 30 to 100 Reference: Connor MF,Joe NC, Ladarius CASAS, et al. Evaluation,treatment, and prevention of vitamin D deficiency; an Endocrine Society clinical practice guideline. JCEM. 2010; 96(7):1911-30. PERFORMED BY: [place] [address] PATHOLOGIST MOLD DRESSER NORI PATEL M.D. Performed By: #### C BC, LIPID, THYROID SC, CMP, FE, [id number] #### [place] [address] [place] #### INSULIN #### [facility] , IGP,APTIMA HPV,AGE GDLNon AGE GDLN ACOG TESTING Note . [facility] Comment on above: TESTS RESULT FLAG UN ITS REF RANGE LAB Clinician Provided Cytology Information Source.............Cervix;Endocervix No. of containers..01 ThinPrep Vial Age Algo ACOG Aimee... FLAG LEGEND: L-Low Normal,H-High Normal,LL-Alert Low,HH-Alert High <-Panic Low,>-Panic High,A-Abnormal,AA-Critical Abnormal Performed at: 01 =G [address] [place] [address] Grecia Peterson MD, HPV APTIMA Negative Negative [facility] e Comment on above: This nucleic acid am plification test detects fourteen high- risk HPV types (16,18,31,33,35,39,45,51,52,56,58,59,66,68) without differentiation. Performed at: = - [address] [id number] Grapple Skidder Operator: Grecia Peterson MD, Phone: [phone] Performed at: [address] [id number] Grapple Skidder Operator: Grecia Peterson MD, Phone: [phone] IGP, APTIMA HPV, RFX 16/18,45 Note . [facility] Comment on above: TESTS RESULT FLAG UN ITS REF RANGE LAB DIAGNOSIS: 02 NEGATIVE FOR INTRAEPITHELIAL LESION OR MALIGNANCY. Specimen adequacy: 02 Satisfactory for evaluation. Endocervical and/or squamous metaplastic cells (endocervical component) are present. Performed by: 02 Castillo Jarquin, Industrial Methods Consultant (ASC) . 02 Note: Note 02 The Pap smear is a screening test designed to aid in the detection of premalignant and malignant conditions of the uterine cervix. It is not a diagnostic procedure and should not be used as the sole means of detecting cervical cancer. Both false-positive and false-negative reports do occur. Test Methodology: Note 02 The 248 [employer] Prep(R) Companion was unable to read this specimen. Therefore a manual review was performed. FLAG LEGEND: L-Low Normal,H-High Normal,LL-Alert Low,HH-Alert High <-Panic Low,>-Panic High,A-Abnormal,AA-Critical Abnormal Performed at: 02 WB [facility] [address] [place] [address] Grecia Peterson MD, HPV Genotype Reflex Note 02 Criteria not met, HPV Genotype not performed. Criteria not met, HPV Genotype not performed. BRUSH-SPATULA CERVIX [facility] e Basic Metabolic Gaspar w/Rfx A1 Con 07-24-2024 Anion gap [Moles/Vol] 10.0 mmol/L Normal 6.0-15.0 [facility] Comment on above: Performed By: #### E BS LIPID, EMP BMP #### [facility] [address] [place] [address] [place] Calcium [Mass/Vol] 9.4 mg/dL Normal 8.6-10.3 [facility] Comment on above: Performed By: #### E BS LIPID, EMP BMP #### [facility] [address] [place] [address] [place] Chloride [Moles/Vol] 104 mmol/L Normal 98-107 [facility] Comment on above: Performed By: #### E BS LIPID, EMP BMP #### [facility] [address] [place] [address] [place] CO2 [Moles/Vol] 31.9 mmol/L High 21.0-31.0 [facility] Comment on above: Performed By: #### E BS LIPID, EMP BMP #### [facility] [address] [place] [address] [place] Creatinine [Mass/Vol] 0.57 mg/dL Low 0.60-1.20 [facility] Comment on above: Performed By: #### E BS LIPID, EMP BMP #### [facility] [address] [place] [address] [place] GFR/1.73 sq M.predicted MDRD (S/P/Bld) [Vol rate/Area] mL/min/{1.73_m2} Normal [facility] Comment on above: Performed By: #### E BS LIPID, EMP BMP #### [facility] [address] [place] [address] [place] Glucose [Mass/Vol] 88 mg/dL Normal 70-100 [facility] Comment on above: Performed By: #### E BS LIPID, EMP BMP #### [facility] [address] [place] [address] [place] Potassium [Moles/Vol] 3.9 mmol/L Normal 3.5-5.1 [facility] Comment on above: Performed By: #### E BS LIPID, EMP BMP #### [facility] [address] [place] [address] [place] Sodium [Moles/Vol] 142 mmol/L Normal 136-145 [facility] Comment on above: Performed By: #### E BS LIPID, EMP BMP #### [facility] [address] Urea nitrogen [Mass/Vol] 12 mg/dL Normal 7-25 [facility] Comment on above: Performed By: #### E BS LIPID, EMP BMP #### [facility] [address] [place] [id number] [place] Lipid Profileon 07-24-2024 Cholesterol [Mass/Vol] 223 mg/dL High 140-200 [facility] Comment on above: Result Comment: Chol less than 200 mg/dl low risk Chol 201-239 mg/dl borderline risk Chol 240 mg/dl and greater high risk Performed By: #### E BS LIPID, EMP BMP #### [address] Cholesterol in HDL [Mass/Vol] 55 mg/dL Normal 23-92 [facility] Comment on above: Result Comment: HDL CHOL ATP-III CLASSIFICATION Cardiovascular Risk HDL > or equal to 60 mg/dL LOW HDL < 40 mg/dL HIGH Performed By: #### E BS LIPID, EMP BMP #### [address] Cholesterol.total/ Cholesterol in HDL [Mass ratio] 4.1 {ratio} Normal <5.0 [facility] Comment on above: Result Comment: PERF ORMED BY: [place] [address] PATHOLOGIST MOLD DRESSER KANNAN GARCIA M.D. Performed By: #### E BS LIPID, EMP BMP #### [facility] [address] LDL Cholesterol,Calcul ated 137 mg/dL High 0-100 [facility] Comment on above: Result Comment: LDL ATP III CLASSIFICATION LDL less than 100 mg/dL Optimal LDL 100-129 mg/dL Near or above optimal LDL 130-159 mg/dL Borderline high LDL 160-189 mg/dL High LDL greater than 189 mg/dL Very high Performed By: #### E BS LIPID, EMP BMP #### [facility] [address] Triglyceride w/Reflex 155 mg/dL High 0-149 [facility] Comment on above: Result Comment: TRIG ATP III CLASSIFICATION TRIG less than 150 mg/dL Normal TRIG 150-199 mg/dL Borderline high TRIG 200-500 mg/dL High TRIG greater than 500 mg/dL Very high Standard traceable to the Center for Disease Conrtrol and Prevention (CDC) test method. Performed By: #### E BS LIPID, EMP BMP #### [facility] [address] VLDL CHOLESTEROL 31 mg/dL Normal [facility] Comment on above: Performed By: #### E BS LIPID, EMP BMP #### [facility] [address] [place] [address] CALCIUMon 05-16-2024 Calcium [Mass/Vol] 9.6 mg/dL Normal 8.5-10.5 [facility] Comment on above: Performed By: #### C BCA, 49616-0, FEPR, LIVR, 2731-8, 2276-4, 2284-8, 2132-9, 93273-6 ####[facility] ([id number])[address] [place] [address]#### VITASP ####[facility] ([id number])[address] [place] [address] 61367 CBC AND AUTO DIFFon 05-16-20 ABSOLUTE BASOPHIL 0.0 X10E9/L Normal 0.0-0.2 [facility] Comment on above: Performed By: #### C BCA, 14705-8, FEPR, LIVR, 2731-8, 2276-4, 2284-8, 2132-9, 01077-8 ####[facility] ([id number])[address] [place] [address], [address] [address]#### VITASP ####[facility] ([id number])[address] [place] [address] 63408 ABSOLUTE NEUTROPHIL 3.8 X10E9/L Normal 1.5-6.6 [facility] Comment on above: Performed By: #### C BCA, 56262-7, FEPR, LIVR, 2730-8, 6-4, 2283-8, 9, 10969-1 ####[facility] ([id number])[address], [address] [place] [address]#### VITASP ####[facility] ([id number])[address] [place] [address] 98026 Basophils/100 WBC (Bld) 0.6 % Normal [facility] Comment on above: Performed By: #### C BCA, 72579-8, FEPR, LIVR, 2730-8, 2275-4, 8, 2132-07, 62818-7 ####[facility] ([id number])[address], [address] [place] [address]#### VITASP ####[facility] ([id number])[address] [place] [address] 35011 Eosinophils (Bld) [#/Vol] 0.1 10*3/uL Normal 0.0-0.4 [facility] Comment on above: Performed By: #### C BCA, 53395-6, FEPR, LIVR, 2730-8, 2275-4, 8, 2132-07, 06421-5 ####[facility] ([id number])[address], [address] [place] [address]#### VITASP ####[facility] ([id number])[address] [place] [address] 34203 Eosinophils/100 WBC (Bld) 1.7 % Normal [facility] Comment on above: Performed By: #### C BCA, 25003-1, FEPR, LIVR, 2730-8, 2275-4, 8, 2132-07, 66170-9 ####[facility] ([id number])[address], [address] [place] [address] 36796#### VITASP ####[facility] ([id number])[address] [place] [address] 98396 Erythrocyte distribution width (RBC) [Ratio] 14.4 % Normal 11.5-15.0 [facility] Comment on above: Performed By: #### C BCA, 93891-5, FEPR, LIVR, 2731-8, 2276-4, 4-8, 2131-9, 81462-9 ####[facility] ([id number])[address], [address] [place] [address] 28776#### VITASP ####[facility] ([id number])[address] [place] [address] 43382 Hematocrit (Bld) [Volume fraction] 37.7 % Normal 35-47 [facility] Comment on above: Performed By: #### C BCA, 32588-1, FEPR, LIVR, 1-8, 6-4, 4-8, 9, 18681-8 ####[facility] ([id number])[address], [address] [place] [address] 35830#### VITASP ####[facility] ([id number])[address] [place] [address] 59133 Hemoglobin (Bld) [Mass/Vol] 12.8 g/dL Normal 11.7-15.5 [facility] Comment on above: Performed By: #### C BCA, 63077-1, FEPR, LIVR, 2731-8, 2276-4, 4-8, 9, 48600-2 ####[facility] ([id number])[address], [address] [place] [address] 18744#### VITASP ####[facility] ([id number])[address] [place] [address] 11303 Lymphocytes (Bld) [#/Vol] 1.9 10*3/uL Normal 1.0-3.5 [facility] Comment on above: Performed By: #### C BCA, 38549-1, FEPR, LIVR, 2731-8, 2276-4, 2284-8, 2132-9, 49906-5 ####[facility] ([id number])[address], [address] [place] [address] 98289#### VITASP ####[facility] ([id number])[address] [place] [address] 43527 Lymphocytes/100 WBC (Bld) 30.7 % Normal [facility] Comment on above: Performed By: #### C BCA, 55589-2, FEPR, LIVR, 1-8, 2276-4, 2284-8, 2131-9, 09464-8 ####[facility] ([id number])[address], [address] [place] [address] 67549#### VITASP ####[facility] ([id number])[address] [place] [address] 28454 MCH (RBC) [Entitic mass] 28.1 pg Normal 27-34 [facility] Comment on above: Performed By: #### C BCA, 41858-0, FEPR, LIVR, 2731-8, 2276-4, 2284-8, 2-9, 34621-8 ####[facility] ([id number])[address], [address] [place] [address] 37274#### VITASP ####[facility] ([id number])[address] [place] [address] 66947 MCHC (RBC) [Mass/Vol] 33.9 g/dL Normal 32-36 [facility] Comment on above: Performed By: #### C BCA, 05612-4, FEPR, LIVR, 2731-8, 2276-4, 4-8, 9, 18353-8 ####[facility] ([id number])[address], [address] [place] [address] 72366#### VITASP ####[facility] ([id number])[address] [place] [address] 88199 MCV (RBC) [Entitic vol] 83 fL Normal 80-100 [facility] Comment on above: Performed By: #### C BCA, 03348-3, FEPR, LIVR, 2730-8, 6-4, 2283-8, 2132-07, 42168-2 ####[facility] ([id number])[address] [id number]#### VITASP ####[facility] ([id number])[address] [place] [address] 60790 Monocytes (Bld) [#/Vol] 0.3 10*3/uL Normal 0-0.9 [facility] Comment on above: Performed By: #### C BCA, 71623-8, FEPR, LIVR, 1-8, 6-4, 4-8, 2132-07, 61397-6 ####[facility] ([id number])[address], [address] [place] [address] 32563#### VITASP ####[facility] ([id number])[address] [place] [address] 38416 Monocytes/100 WBC (Bld) 5.2 % Normal [facility] Comment on above: Performed By: #### C BCA, 24099-5, FEPR, LIVR, 1-8, 2276-4, 4-8, 9, 53774-6 ####[facility] ([id number])[address], [address] [place] [address] 62034#### VITASP ####[facility] ([id number])[address] [place] [address] 74994 Neutrophils/100 WBC (Bld) 61.8 % Normal [facility] Comment on above: Performed By: #### C BCA, 30825-2, FEPR, LIVR, 2731-8, 2276-4, 2284-8, 2-9, 98474-9 ####[facility] ([id number])[address], [address] [place] [address] 49330#### VITASP ####[facility] ([id number])[address] [place] [address] 53898 Platelet mean volume (Bld) [Entitic vol] 9.3 fL Normal 7-12 [facility] Comment on above: Performed By: #### C BCA, 36915-6, FEPR, LIVR, 2731-8, 2276-4, 2284-8, 2131-9, 15288-5 ####[facility] ([id number])[address], [address] [place] [address] 62764#### VITASP ####[facility] ([id number])[address] [place] [address] 06922 Platelets (Bld) [#/Vol] 184 10*3/uL Normal 150-450 [facility] Comment on above: Performed By: #### C BCA, 93968-9, FEPR, LIVR, 2731-8, 2276-4, 2284-8, 2131-9, 14641-3 ####[facility] ([id number])[address], [address] [place] [address] 82682#### VITASP ####[facility] ([id number])[address] [place] [address] 49500 RBC COUNT 4.54 X10E12/L Normal 3.80-5.20 [facility] Comment on above: Performed By: #### C BCA, 61093-8, FEPR, LIVR, 2731-8, 2276-4, 2284-8, 2-9, 42733-4 ####[facility] ([id number])[address] [address]#### VITASP ####[facility] ([id number])[address] [place] [address] 71445 WBC (Bld) [#/Vol] 6.1 10*3/uL Normal 4.0-11.0 [facility] Comment on above: Performed By: #### C BCA, 15598-9, FEPR, LIVR, 2731-8, 2276-4, 4-8, 2131-9, 64271-8 ####[facility] ([id number])[address] [place] [address], [address] [address]#### VITASP ####[facility] ([id number])[address] [place] [address] 50277 Copper [Mass/Vol]on 05-16-20 24 Copper, S 131 mcg/dL Normal 77-206 [facility] Comment on above: Result Comment: NOTE ADDITIONAL INFORMATION This test was developed and its performance characteristics determined by [facility] in a manner consistent with CLIA requirements. This test has not been cleared or approved by the U.S. Food and Drug Administration. Test Performed by: [facility] [address] [place] [address] Grapple Skidder Operator: Cedric Muniz Ph.D.; CLIA# [id number] Performed By: #### 5 631-7, 5763-8, 55554-7 ####[facility] ([id number])[address] [place] [address] 76761 FERRITINon 05-16-2024 Ferritin [Mass/Vol] 384 ng/mL High 11-307 [facility] Comment on above: Performed By: #### C BCA, 07031-0, FEPR, LIVR, 2731-8, 2276-4, 2284-8, 2132-9, 59077-1 ####[facility] ([id number])[address] [place] [address], [address] [address]#### VITASP ####[facility] ([id number])[address] [place] [address] 09616 Folate [Mass/Vol]on 05-16-20 24 FOLIC ACID >25.0 Normal >5.8 [facility] Comment on above: Result Comment: NEW REFERENCE RANGE Performed By: #### C BCA, 27056-5, FEPR, LIVR, 2731-8, 2276-4, 2284-8, 2132-9, 42641-9 ####[facility] ([id number])[address] [place] [address]8720#### VITASP ####[facility] ([id number])[address] [place] [address] 60526 IRON PROFILEon 05-16-2024 Iron [Mass/Vol] 39 ug/dL Low 50-170 [facility] Comment on above: Performed By: #### C BCA, 10811-7, FEPR, LIVR, 2731-8, 2276-4, 2284-8, 2132-9, 90913-8 ####[facility] ([id number])[address] [place] [address] 00333#### VITASP ####[facility] ([id number])[address] [place] [address] 91479 IRON BINDING 280 ug/dL Normal 250-425 [facility] Comment on above: Performed By: #### C BCA, 95843-2, FEPR, LIVR, 2731-8, 2276-4, 2284-8, 2131-9, 54680-2 ####[facility] ([id number])[address], [address] [place] [address] 84101#### VITASP ####[facility] ([id number])[address] [place] [address] 99240 IRON SATURATION 14 % SATURATION Low 15-50 [facility] Comment on above: Performed By: #### C BCA, 45824-0, FEPR, LIVR, 2731-8, 2276-4, 2283-8, 9, 93775-9 ####[facility] ([id number])[address] [facility], [address] [address]#### VITASP ####[facility] ([id number])[address] [place] [address] 15029 LIVER PANELon 05-16-2024 Albumin [Mass/Vol] 4.2 g/dL Normal 3.2-5.3 [facility] Comment on above: Performed By: #### C BCA, 68080-6, FEPR, LIVR, 2731-8, 2276-4, 2284-8, 2131-9, 34931-5 ####[facility] ([id number])[address], [address] [address]#### VITASP ####[facility] ([id number])[address] [place] [address] 46212 ALP [Catalytic activity/Vol] 83 U/L Normal 39-130 [facility] Comment on above: Performed By: #### C BCA, 23151-1, FEPR, LIVR, 2731-8, 2276-4, 2284-8, 2131-9, 52097-2 ####[facility] ([id number])[address], [address] [place] [address] 82325#### VITASP ####[facility] ([id number])[address] [place] [address] 53064 ALT [Catalytic activity/Vol] 12 U/L Normal 0-31 [facility] Comment on above: Performed By: #### C BCA, 73341-9, FEPR, LIVR, 2731-8, 2276-4, 2284-8, 2132-9, 37052-1 ####[facility] ([id number])[address], [address] [place] [address] 84180#### VITASP ####[facility] ([id number])[address] [place] [address] 13069 AST [Catalytic activity/Vol] 12 U/L Normal 0-41 [facility] Comment on above: Performed By: #### C BCA, 36083-2, FEPR, LIVR, 2731-8, 2276-4, 2284-8, 2-9, 90747-5 ####[facility] ([id number])[address], [address] [place] [address] 69563#### VITASP ####[facility] ([id number])[address] [place] [address] 35017 Bilirubin [Mass/Vol] 0.3 mg/dL Normal 0.3-1.2 [facility] Comment on above: Performed By: #### C BCA, 38144-0, FEPR, LIVR, 2731-8, 2276-4, 2284-8, 2132-9, 34377-6 ####[facility] ([id number])[address], [address] [place] [address] 77713#### VITASP ####[facility] ([id number])[address] [place] [address] 45144 Bilirubin.direct [Mass/Vol] 0.0 mg/dL Normal 0.0-0.4 [facility] Comment on above: Performed By: #### C BCA, 06974-6, FEPR, LIVR, 2731-8, 2276-4, 2284-8, 2-9, 80614-2 ####[facility] ([id number])[address], [address] [place] [address] 30935#### VITASP ####[facility] ([id number])[address] [place] [address] 77885 Protein [Mass/Vol] 6.7 g/dL Normal 6.0-8.0 [facility] Comment on above: Performed By: #### C BCA, 22977-5, FEPR, LIVR, 1-8, 2276-4, 2284-8, 2-9, 40079-3 ####[facility] ([id number])[address] [facility], [address] [place] [address] 10149#### VITASP ####[facility] ([id number])[address] [place] [address] 54260 Parathyrin.intact [Mass/Vol] on 05-16-2024 PTH INTACT 59 pg/mL Normal 12-88 [facility] Comment on above: Performed By: #### C BCA, 65413-5, FEPR, LIVR, 2731-8, 2276-4, 2284-8, 2-9, 45635-3 ####[facility] ([id number])[address], [address] [place] [address] 02911#### VITASP ####[facility] ([id number])[address] [place] [address] 56549 Thiamine (Bld) [Moles/Vol]on 05-16-2024 Thiamin (Vitamin B1), WB 152 nmol/L Normal 70-180 [facility] Comment on above: Result Comment: NOTE ADDITIONAL INFORMATION This test was developed and its performance characteristics determined by [facility] in a manner consistent with CLIA requirements. This test has not been cleared or approved by the U.S. Food and Drug Administration. Test Performed by: [facility] [address] [id number] Grapple Skidder Operator: Cedric Muniz Ph.D.; CLIA# [id number] Performed By: #### 5 631-7, 5763-8, 43351-2 ####[facility] ([id number])[address] [place] [address] 78558 VITAMIN A(RETINOL)on 024 RETINYL PALMITATE 0.04 mg/L Normal 0.00-0.10 [facility] Comment on above: Performed By: #### C BCA, 59447-5, FEPR, LIVR, 1-8, 2276-4, 4-8, 2131-9, 07033-2 ####[facility] ([id number])[address] [place] [address] [place] [address] 40096#### VITASP ####[facility] ([id number])[address] [place] [address] 29824 VIT A,SER/PL INTERP NORMAL Normal [facility] Comment on above: Result Comment: NOTE This test was developed and its performance characteristics determined by [facility]. It has not been cleared or approved by the US Food and Drug Administration. This test was performed in a CLIA certified laboratory and is intended for clinical purposes. Performed By: [facility] [address] [place] [address] Microbiology Lab Manager: Edilberto Ortega MD, PhD CLIA Number: [id number] Performed By: #### C BCA, 54217-8, FEPR, LIVR, 2731-8, 2276-4, 2284-8, 2132-9, 53012-0 ####[facility] ([id number])[address] [facility], [address] [place] [address] 59368#### VITASP ####[facility] ([id number])[address] [place] [address] 31953 VITAMIN A(RETINOL) 0.60 mg/L Normal 0.30-1.20 [facility] Comment on above: Performed By: #### C BCA, 79441-1, FEPR, LIVR, 2731-8, 2276-4, 2284-8, 2132-9, 64155-5 ####[facility] ([id number])On license of [facility], [address] [place] [address] 65873#### VITASP ####[facility] ([id number])[address] [place] [address] 56093 VITAMIN B12on 05-16-2024 Cobalamin (Vitamin B12) [Mass/Vol] 824 pg/mL Normal 180-914 [facility] Comment on above: Performed By: #### C BCA, 41824-4, FEPR, LIVR, 2731-8, 2276-4, 2284-8, 2132-9, 08105-0 ####[facility] ([id number])[address] [facility], [address] [address]#### VITASP ####[facility] ([id number])[address] [place] [address] 66661 Vitamin D+Metabolites [Mass/ Vol]on 05-16-2024 VITAMIN D 25 HYD TOT 31.3 ng/mL Normal 30-100 [facility] Comment on above: Result Comment: Vitamin D status 25 OH Vitamin D Deficiency <20 ng/mL Insufficiency 20-29 ng/mL Sufficiency 30-100 ng/mL Toxicity >100 ng/mL NOTE: A pediatric reference range has not been established by the plant and machinery valuer of this kit. The [place] [employer] recommends a Vitamin D level of = or >20ng/mL in infants and children. Performed By: #### C BCA, 64568-6, FEPR, LIVR, 1-8, 6-4, 4-8, 2131-9, 14483-5 ####[facility] ([id number])[address] [place] [address], [address] [place] [address]395#### VITASP ####[facility] ([id number])[address] [place] [address] Zinc [Mass/Vol]on 05-16-2024 Zinc, S 72 mcg/dL Normal 60-106 [facility] Comment on above: Result Comment: NOTE ADDITIONAL INFORMATION This test was developed and its performance characteristics determined by [facility] in a manner consistent with CLIA requirements. This test has not been cleared or approved by the U.S. Food and Drug Administration. Test Performed by: [facility] [place] [address] [employer] Operator: Cedric Muniz Ph.D.; CLIA# [id number] Performed By: #### 5 631-7, 5763-8, 09325-1 ####[facility] ([id number])[address] [place] [address] CBC AND AUTO DIFFon 10-28-20 23 ABSOLUTE BASOPHIL 0.0 X10E9/L Normal 0.0-0.2 [facility] Comment on above: Performed By: #### C BCA, THYR, CMP, LIVR #### [facility] ([id number]) [address] [place] [address] #### 93385-8, FEPR, 3051-0, 1-8, 6-4, 2283-8, 2131-9, 34881-8, 2088-11 #### [facility] ([id number]) [address] [place] [address], [address] [place] [address] #### 2998-3 #### [facility] ([id number]) [address] [place] [address] ABSOLUTE NEUTROPHIL 5.2 X10E9/L Normal 1.5-6.6 [facility] Comment on above: Performed By: #### C BCA, THYR, CMP, LIVR #### [facility] ([id number]) [address] [place] [address] #### 47915-5, FEPR, 3051-0, 1-8, 6-4, 2283-8, 9, 93768-2, 2088-11 #### [facility] ([id number]) [address] [place] [address], [facility] [address] [place] [address] #### 2998-3 #### [facility] ([id number]) [address] [place] [address] Basophils/100 WBC (Bld) 0.4 % Normal [facility] Comment on above: Performed By: #### C BCA, THYR, CMP, LIVR #### [facility] ([id number]) [address] [place] [address] #### 19040-4, FEPR, 3051-0, 1-8, 6-4, 4-8, 2131-9, 60302-7, 2088-11 #### [facility] ([id number]) [address] [place] [address], [address] [place] [address] #### 2998-3 #### [facility] ([id number]) [address] [place] [address] Eosinophils (Bld) [#/Vol] 0.1 10*3/uL Normal 0.0-0.4 [facility] Comment on above: Performed By: #### C BCA, THYR, CMP, LIVR #### [facility] ([id number]) [address] [place] [address] #### 58185-0, FEPR, 3051-0, 2731-8, 2276-4, 2284-8, 2132-9, 32733-7, 2088- #### [facility] ([id number]) [address] [place] [address], [address] [place] [address] #### 2998-3 #### [facility] ([id number]) [address] [place] [address] Eosinophils/100 WBC (Bld) 0.9 % Normal [facility] Comment on above: Performed By: #### C BCA, THYR, CMP, LIVR #### [facility] ([id number]) [address] [place] [address] #### 17110-8, FEPR, 3051-0, 2731-8, 2276-4, 2284-8, 2132-9, 15866-5, 2088-11 #### [facility] ([id number]) [address] [place] [address], [address] [place] [address] #### 2998-3 #### [facility] ([id number]) [address] [place] [address] Erythrocyte distribution width (RBC) [Ratio] 15.5 % High 11.5-15.0 [facility] Comment on above: Performed By: #### C BCA, THYR, CMP, LIVR #### [facility] ([id number]) [address] [place] [address] #### 49272-9, FEPR, 3051-0, 2731-8, 2276-4, 2284-8, 2132-9, 81664-8, 2088- #### [facility] ([id number]) [address] [place] [address], [address] [place] [address] #### 2998-3 #### [facility] ([id number]) [address] [place] [address] Hematocrit (Bld) [Volume fraction] 38.1 % Normal 35-47 [facility] Comment on above: Performed By: #### C BCA, THYR, CMP, LIVR #### [facility] ([id number]) [address] [place] [address] #### 41404-5, FEPR, 3051-0, 2731-8, 2276-4, 2284-8, 2131-9, 55998-4, 2088-1 #### [facility] ([id number]) [address] [place] [address], [address] [place] [address] #### 2998-3 #### [facility] ([id number]) [address] [place] [address] Hemoglobin (Bld) [Mass/Vol] 12.5 g/dL Normal 11.7-15.5 [facility] Comment on above: Performed By: #### C BCA, THYR, CMP, LIVR #### [facility] ([id number]) [address] [place] [address] #### 33166-7, FEPR, 3051-0, 2731-8, 2276-4, 2284-8, 2131-9, 88840-8, 2088-1 #### [facility] ([id number]) [address] [place] [address], [address] [place] [address] #### 2998-3 #### [facility] ([id number]) [address] [place] [address] Lymphocytes (Bld) [#/Vol] 2.2 10*3/uL Normal 1.0-3.5 [facility] Comment on above: Performed By: #### C BCA, THYR, CMP, LIVR #### [facility] ([id number]) [address] [place] [address] #### 24726-3, FEPR, 3051-0, 2731-8, 2276-4, 2284-8, 2132-9, 07294-7, 2088-1 #### [facility] ([id number]) [address] [place] [address], [address] [place] [address] #### 2998-3 #### [facility] ([id number]) [address] [place] [address] Lymphocytes/100 WBC (Bld) 26.7 % Normal [facility] Comment on above: Performed By: #### C BCA, THYR, CMP, LIVR #### [facility] ([id number]) [address] [place] [address] #### 50738-4, FEPR, 3051-0, 2731-8, 2276-4, 2284-8, 2132-9, 07476-2, 2088- #### [facility] ([id number]) [address] [place] [address], [address] [place] [address] #### 2998-3 #### [facility] ([id number]) [address] [place] [address] MCH (RBC) [Entitic mass] 26.4 pg Low 27-34 [facility] Comment on above: Performed By: #### C BCA, THYR, CMP, LIVR #### [facility] ([id number]) [address] [place] [address] #### 21023-8, FEPR, 3051-0, 2731-8, 2276-4, 2284-8, 2132-9, 32402-6, 2088-1 #### [facility] ([id number]) [address] [place] [address], [address] [place] [address] #### 2998-3 #### [facility] ([id number]) [address] [place] [address] MCHC (RBC) [Mass/Vol] 32.9 g/dL Normal 32-36 [facility] Comment on above: Performed By: #### C BCA, THYR, CMP, LIVR #### [facility] ([id number]) [address] [place] [address] #### 48935-0, FEPR, 3051-0, 2731-8, 2276-4, 2284-8, 2132-9, 52814-9, 2088-1 #### [facility] ([id number]) [address] [place] [address], [place] [address] #### 2998-3 #### [facility] ([id number]) [address] [place] [address] MCV (RBC) [Entitic vol] 80 fL Normal 80-100 [facility] Comment on above: Performed By: #### C BCA, THYR, CMP, LIVR #### [facility] ([id number]) [address] [place] [address] #### 90806-6, FEPR, 3051-0, 2731-8, 2276-4, 2284-8, 2132-9, 77258-7, 2088-1 #### [facility] ([id number]) [address] [place] [address], [address] [place] [address] #### 2998-3 #### [facility] ([id number]) [address] [place] [address] Monocytes (Bld) [#/Vol] 0.7 10*3/uL Normal 0-0.9 [facility] Comment on above: Performed By: #### C BCA, THYR, CMP, LIVR #### [facility] ([id number]) [address] [place] [address] #### 85866-8, FEPR, 3051-0, 2731-8, 2276-4, 2284-8, 2132-9, 14413-7, 2088-1 #### [facility] ([id number]) [address] [facility], [address] [place] [address] #### 2998-3 #### [facility] ([id number]) [address] [place] [address] Monocytes/100 WBC (Bld) 8.8 % Normal [facility] Comment on above: Performed By: #### C BCA, THYR, CMP, LIVR #### [facility] ([id number]) [address] [place] [address] 12669 #### 11917-7, FEPR, 3051-0, 2731-8, 2276-4, 2284-8, 2131-9, 74482-3, 2088- #### [facility] ([id number]) [address] [facility], [address] [place] [address] #### 2998-3 #### [facility] ([id number]) [address] [place] [address] Neutrophils/100 WBC (Bld) 63.2 % Normal [facility] Comment on above: Performed By: #### C BCA, THYR, CMP, LIVR #### [facility] ([id number]) [address] [place] [address] #### 04721-9, FEPR, 3051-0, 2731-8, 2276-4, 2284-8, 2132-9, 55549-9, 2088-1 #### [facility] ([id number]) [address], [address] [place] [address] #### 2998-3 #### [facility] ([id number]) [address] [place] [address] Platelet mean volume (Bld) [Entitic vol] 9.1 fL Normal 7-12 [facility] Comment on above: Performed By: #### C BCA, THYR, CMP, LIVR #### [facility] ([id number]) [address] [place] [address] #### 85376-6, FEPR, 3051-0, 2731-8, 2276-4, 2284-8, 2132-9, 75895-0, 9-1 #### [facility] ([id number]) [address] [place] [address], [address] [place] [address] #### 2998-3 #### [facility] ([id number]) [address] [place] [address] Platelets (Bld) [#/Vol] 170 10*3/uL Normal 150-450 [facility] Comment on above: Performed By: #### C BCA, THYR, CMP, LIVR #### [facility] ([id number]) [address] [place] [address] #### 88526-8, FEPR, 3051-0, 2731-8, 2276-4, 2284-8, 2132-9, 70301-7, 2088-1 #### [facility] ([id number]) [address] [place] [address], [address] [place] [address] #### 2998-3 #### [facility] ([id number]) [address] [place] [address] RBC COUNT 4.75 X10E12/L Normal 3.80-5.20 [facility] Comment on above: Performed By: #### C BCA, THYR, CMP, LIVR #### [facility] ([id number]) [address] [place] [address] #### 01074-9, FEPR, 3051-0, 2731-8, 2276-4, 2284-8, 2132-9, 01250-4, 2088-1 #### [facility] ([id number]) [address], [address] [place] [address] #### 2998-3 #### [facility] ([id number]) [address] [place] [address] WBC (Bld) [#/Vol] 8.2 10*3/uL Normal 4.0-11.0 [facility] Comment on above: Performed By: #### C BCA, THYR, CMP, LIVR #### [facility] ([id number]) [address] [place] [address] 92243 #### 06912-0, FEPR, 3051-0, 2731-8, 2276-4, 2284-8, 2-9, 69827-3, 2088-1 #### [facility] ([id number]) [address] [facility], [address] [place] [address] #### 2998-3 #### [facility] ([id number]) [address] [place] [address] COMPREHENSIVE METABOLIC PANE Senthil 10-28-2023 Albumin [Mass/Vol] 3.6 g/dL Normal 3.2-5.3 [facility] Comment on above: Performed By: #### C BCA, THYR, CMP, LIVR #### [facility] ([id number]) [address] [place] [address]22 #### 84424-0, FEPR, 3051-0, 2731-8, 2276-4, 2284-8, 2132-9, 84162-6, 2088-1 #### [facility] ([id number]) [address] [facility], [address] [place] [address] #### 2998-3 #### [facility] ([id number]) [address] [place] [address] ALP [Catalytic activity/Vol] 72 U/L Normal 39-130 [facility] Comment on above: Performed By: #### C BCA, THYR, CMP, LIVR #### [facility] ([id number]) [address] [place] [address]10 #### 61427-8, FEPR, 3051-0, 2731-8, 2276-4, 2284-8, 2132-9, 23431-6, 9-1 #### [facility] ([id number]) [address] [place] [address], [address] [place] [address] #### 2998-3 #### [facility] ([id number]) [address] [place] [address] ALT [Catalytic activity/Vol] 22 U/L Normal 0-31 [facility] Comment on above: Performed By: #### C BCA, THYR, CMP, LIVR #### [facility] ([id number]) [address] [place] [address] #### 70169-4, FEPR, 3051-0, 2731-8, 2276-4, 2284-8, 2132-9, 40345-6, 2088-1 #### [facility] ([id number]) [address] [place] [address], [address] [place] [address] #### 2998-3 #### [facility] ([id number]) [address] [place] [address] Anion gap [Moles/Vol] 3 mmol/L Low 5-15 [facility] Comment on above: Performed By: #### C BCA, THYR, CMP, LIVR #### [facility] ([id number]) [address] [place] [address] 68229 #### 00306-1, FEPR, 3051-0, 2731-8, 2276-4, 2284-8, 2132-9, 38367-9, 2088-1 #### [facility] ([id number]) [address] [place] [address], [address] [place] [address] #### 2998-3 #### [facility] ([id number]) [address] [place] [address] AST [Catalytic activity/Vol] 20 U/L Normal 0-41 [facility] Comment on above: Performed By: #### C BCA, THYR, CMP, LIVR #### [facility] ([id number]) [address] [place] [address] #### 68239-4, FEPR, 3051-0, 2731-8, 2276-4, 2284-8, 2132-9, 25531-3, 2088- #### [facility] ([id number]) [address] [place] [address], [address] [place] [address] #### 2998-3 #### [facility] ([id number]) [address] [place] [address] Bilirubin [Mass/Vol] 0.5 mg/dL Normal 0.3-1.2 [facility] Comment on above: Performed By: #### C BCA, THYR, CMP, LIVR #### [facility] ([id number]) [address] [place] [address] 79056 #### 87729-4, FEPR, 3051-0, 2731-8, 2276-4, 2284-8, 2132-9, 47890-5, 2088-1 #### [facility] ([id number]) [address] [place] [address], [address] [place] [address] #### 2998-3 #### [facility] ([id number]) [address] [place] [address] Calcium [Mass/Vol] 8.7 mg/dL Normal 8.5-10.5 [facility] Comment on above: Performed By: #### C BCA, THYR, CMP, LIVR #### [facility] ([id number]) [address] [place] [address]1233 #### 23365-7, FEPR, 3051-0, 2731-8, 2276-4, 2284-8, 2132-9, 23295-3, 2088-1 #### [facility] ([id number]) [address] [place] [address], [address] [place] [address] #### 2998-3 #### [facility] ([id number]) [address] [place] [address] Chloride [Moles/Vol] 108 mmol/L Normal 98-109 [facility] Comment on above: Performed By: #### C BCA, THYR, CMP, LIVR #### [facility] ([id number]) [address] [place] [address] 50703 #### 26768-3, FEPR, 3051-0, 2731-8, 2276-4, 2284-8, 2-9, 72610-6, 2088- #### [facility] ([id number]) [address] [place] [address], [address] [place] [address] #### 2998-3 #### [facility] ([id number]) [address] [place] [address] CO2 [Moles/Vol] 27 mmol/L Normal 22-32 [facility] Comment on above: Performed By: #### C BCA, THYR, CMP, LIVR #### [facility] ([id number]) [address] [place] [address] 99994 #### 56690-8, FEPR, 3051-0, 2731-8, 2276-4, 2284-8, 2132-9, 97805-5, 2088-1 #### [facility] ([id number]) [address] [place] [address], [address] [place] [address] #### 2998-3 #### [facility] ([id number]) [address] [place] [address] Creatinine [Mass/Vol] 0.59 mg/dL Normal 0.40-1.00 [facility] Comment on above: Result Comment: METH OD TRACEABLE TO IDMS STANDARD Performed By: #### C BCA, THYR, CMP, LIVR #### [facility] ([id number]) [address] [place] [address] 13712 #### 74893-2, FEPR, 3051-0, 2731-8, 2276-4, 2284-8, 2132-9, 34295-1, 2088-1 #### [facility] ([id number]) [address] [place] [address], [address] [address] #### 2998-3 #### [facility] ([id number]) [address] [place] [address] eGFR (CKD-EPI) NON-RACE DEPENDENT >90 Normal >59 [facility] Comment on above: Result Comment: Reported eGFR is based on the CKD-EPI 2020 equation that does not use a race coefficient. Performed By: #### C BCA, THYR, CMP, LIVR #### [facility] ([id number]) [address] [place] [address] #### 67689-7, FEPR, 3051-0, 2731-8, 2276-4, 2284-8, 2132-9, 37089-1, 2088-1 #### [facility] ([id number]) [address] [place] [address], [address] [place] [address] #### 2998-3 #### [facility] ([id number]) [address] [place] [address] Glucose [Mass/Vol] 96 mg/dL Normal 65-99 [facility] Comment on above: Performed By: #### C BCA, THYR, CMP, LIVR #### [facility] ([id number]) [address] [place] [address] 92411 #### 97441-4, FEPR, 3051-0, 2731-8, 2276-4, 2284-8, 2132-9, 33919-0, 2088- #### [facility] ([id number]) [address] [place] [address], [address] [place] [address] #### 2998-3 #### [facility] ([id number]) [address] [place] [address] Potassium [Moles/Vol] 3.9 mmol/L Normal 3.5-5.0 [facility] Comment on above: Performed By: #### C BCA, THYR, CMP, LIVR #### [facility] ([id number]) [address] [place] [address] 99332 #### 53807-4, FEPR, 3051-0, 2731-8, 2276-4, 2284-8, 2131-9, 41540-8, 2088- #### [facility] ([id number]) [address] [place] [address], [address] [place] [address] #### 2998-3 #### [facility] ([id number]) [address] [place] [address] Protein [Mass/Vol] 6.6 g/dL Normal 6.0-8.0 [facility] Comment on above: Performed By: #### C BCA, THYR, CMP, LIVR #### [facility] ([id number]) [address] [place] [address] 09224 #### 86428-6, FEPR, 3051-0, 2731-8, 2276-4, 2284-8, 2132-9, 19800-2, 2088-1 #### [facility] ([id number]) [address] [place] [address], [address] [place] [address] #### 2998-3 #### [facility] ([id number]) [address] [place] [address] Sodium [Moles/Vol] 138 mmol/L Normal 134-146 [facility] Comment on above: Performed By: #### C BCA, THYR, CMP, LIVR #### [facility] ([id number]) [address], [place] [address] #### 40593-1, FEPR, 3051-0, 2731-8, 2276-4, 2284-8, 2131-9, 22486-2, 2088-1 #### [facility] ([id number]) [address] [place] [address], [address] [place] [address] #### 2998-3 #### [facility] ([id number]) [address] [place] [address] Urea nitrogen [Mass/Vol] 16 mg/dL Normal 5-23 [facility] Comment on above: Performed By: #### C BCA, THYR, CMP, LIVR #### [facility] ([id number]) [address] [place] [address] 01570 #### 15260-6, FEPR, 3051-0, 2731-8, 2276-4, 2284-8, 2131-9, 96850-9, 2088-1 #### [facility] ([id number]) [address] [place] [address], [address] [place] [address] #### 2998-3 #### [facility] ([id number]) [address] [place] [address] DIRECT LDLon 10-28-2023 Cholesterol in LDL [Mass/Vol] 143 mg/dL High <130 [facility] Comment on above: Result Comment: LDL <100 mg/dL - Desirable LDL 130-159 mg/dL - Borderline High Risk LDL >160 mg/dL - High Risk Performed By: #### C BCA, THYR, CMP, LIVR ####[facility] ([id number])[address] [place] [address]#### 94703-3, FEPR, 3051-0, 2731-8, 2276-4, 2284-8, 2132-9, 03795-3, 2089-1 ####[facility] ([id number])[address] [place] [address]#### 2998-3 ####[facility] ([id number])[address] [place] [address] FERRITINon 10-28-2023 Ferritin [Mass/Vol] 224 ng/mL Normal 11-307 [facility] Comment on above: Performed By: #### C BCA, THYR, CMP, LIVR ####[facility] ([id number])[address] [place] [address]#### 96646-4, FEPR, 3051-0, 2731-8, 2276-4, 2284-8, 2132-9, 06799-2, 2088-1 ####[facility] ([id number])[address] [place] [address], [address] [place] [address]#### 2998-3 ####[facility] ([id number])[address] [place] [address] FREE T3on 10-28-2023 Free T3 [Mass/Vol] 3.14 pg/mL Normal 2.50-3.90 [facility] Comment on above: Performed By: #### C BCA, THYR, CMP, LIVR ####[facility] ([id number])[address] [place] [address]#### 46418-6, FEPR, 3051-0, 2731-8, 2276-4, 2284-8, 2132-9, 75261-5, 2088-1 ####[facility] ([id number])[address] [address]#### 2998-3 ####[facility] ([id number])[address] [place] [address] Folate [Mass/Vol]on 10-28-20 FOLIC ACID >25.0 Normal >5.8 [facility] Comment on above: Result Comment: NEW REFERENCE RANGE Performed By: #### C BCA, THYR, CMP, LIVR ####[facility] ([id number])[address] [place] [address]#### 22361-8, FEPR, 3051-0, 2731-8, 2276-4, 2284-8, 2132-9, 71681-8, 2088- ####[facility] ([id number])[address] [place] [address]#### 2998-3 ####[facility] ([id number])[address] [place] [address] HGB A1C (GLYCO-HGB)on 2022 Glucose [Mass/Vol] 120 mg/dL Normal [facility] Comment on above: Performed By: #### C BCA, THYR, CMP, LIVR ####[facility] ([id number])[address] [place] [address]#### 34173-1, FEPR, 3051-0, 2731-8, 2276-4, 2284-8, 2132-9, 32752-3, 2088- ####[facility] ([id number])[address] [place] [address], [address] [address]#### 2998-3 ####[facility] ([id number])[address] [place] [address] HbA1c (Bld) [Mass fraction] 5.8 % High 4.4-5.6 [facility] Comment on above: Result Comment: NOTE ADA Guidelines Result HgbA1c Normal : less than 5.7 % Prediabetes : 5.7 % to 6.4 % Diabetes : > 6.4 % Use with caution in patients with abnormal hemoglobin variants as the half-life of red blood cells and in vivo glycation rates are affected. Performed By: #### C BCA, THYR, CMP, LIVR ####[facility] ([id number])[address] [place] [address]#### 48485-5, FEPR, 3051-0, 2731-8, 2276-4, 2284-8, 2132-9, 54320-7, 9-1 ####[facility] ([id number])[address] [place] [address]#### 2998-3 ####[facility] ([id number])[address] [place] [address] IRON PROFILEon 10-28-2023 Iron [Mass/Vol] 39 ug/dL Low 50-170 [facility] Comment on above: Performed By: #### C BCA, THYR, CMP, LIVR #### [facility] ([id number]) [address] [place] [address] #### 05366-6, FEPR, 3051-0, 2731-8, 2276-4, 2284-8, 2132-9, 89956-4, 9-1 #### [facility] ([id number]) [address] [place] [address], [address] [address] #### 2998-3 #### [facility] ([id number]) [address] [place] [address] IRON BINDING 276 ug/dL Normal 250-425 [facility] Comment on above: Performed By: #### C BCA, THYR, CMP, LIVR #### [facility] ([id number]) [address] [place] [address] #### 26095-9, FEPR, 3051-0, 2731-8, 2276-4, 2284-8, 2132-9, 04688-3, 9-1 #### [facility] ([id number]) [address] [place] [address], [address] [place] [address] #### 2998-3 #### [facility] ([id number]) [address] [place] [address] IRON SATURATION 14 % SATURATION Low 15-50 [facility] Comment on above: Performed By: #### C BCA, THYR, CMP, LIVR #### [facility] ([id number]) [address] [place] [address] #### 20457-4, FEPR, 3051-0, 2731-8, 2276-4, 2284-8, 2132-9, 44861-6, 9-1 #### [facility] ([id number]) [address] [place] [address], [address] [place] [address] #### 2998-3 #### [facility] ([id number]) [address] [place] [address] LIVER PANELon 10-28-2023 Bilirubin.indirect [Mass/Vol] mg/dL Normal 0.0-0.4 [facility] Comment on above: Performed By: #### C BCA, THYR, CMP, LIVR #### [facility] ([id number]) [address] [place] [address] #### 75195-7, FEPR, 3051-0, 2731-8, 2276-4, 2284-8, 2132-9, 27939-0, 2088-1 #### [facility] ([id number]) [address] [place] [address], [address] [place] [address] #### 2998-3 #### [facility] ([id number]) [address] [place] [address] Lipid 1996 panelon 3 Cholesterol [Mass/Vol] 232 mg/dL High 150-200 [facility] Comment on above: Performed By: #### C BCA, THYR, CMP, LIVR #### [facility] ([id number]) [address] [place] [address] #### 08692-3, FEPR, 3051-0, 2731-8, 2276-4, 4-8, 2131-9, 07885-4, 2088-11 #### [facility] ([id number]) [address] [place] [address], [address] [place] [address] #### 2998-3 #### [facility] ([id number]) [address] [place] [address] Cholesterol in HDL [Mass/Vol] 52 mg/dL Normal >39 [facility] Comment on above: Result Comment: HDL <40 mg/dL - High Risk HDL > or = 40mg/dL- Desirable HDL >60 mg/dL - Negative Risk Performed By: #### C BCA, THYR, CMP, LIVR #### [facility] ([id number]) [address] [place] [address] #### 51135-8, FEPR, 3051-0, 2731-8, 2276-4, 2284-8, 2132-9, 60803-2, 2088-11 #### [facility] ([id number]) [address] [place] [address], [address] [place] [address] #### 2998-3 #### [facility] ([id number]) [address] [place] [address] Cholesterol in VLDL [Mass/Vol] 88 mg/dL High 0-30 [facility] Comment on above: Performed By: #### C BCA, THYR, CMP, LIVR #### [facility] ([id number]) [address], [place] [address] #### 08111-8, FEPR, 3051-0, 1-8, 6-4, 4-8, 2131-9, 66237-0, 2088-11 #### [facility] ([id number]) [address] [place] [address], [address] [place] [address] #### 2998-3 #### [facility] ([id number]) [address] [place] [address] CHOLESTEROL:HDL 4.5 Normal 1.0-5.0 [facility] Comment on above: Performed By: #### C BCA, THYR, CMP, LIVR #### [facility] ([id number]) [address] [place] [address], [place] [address] #### 14686-7, FEPR, 3051-0, 1-8, 6-4, 4-8, 2131-9, 94903-2, 2088-11 #### [facility] ([id number]) [address] [place] [address], [address] [place] [address] #### 2998-3 #### [facility] ([id number]) [address] [place] [address] LDL (CALC) RESULT NOT REPORTED DUE TO HIGH TRIGLYCERIDE Normal <130 [facility] Comment on above: Performed By: #### C BCA, THYR, CMP, LIVR #### [facility] ([id number]) [address], [place] [address] #### 22851-8, FEPR, 3051-0, 2731-8, 2276-4, 2284-8, 2132-9, 49125-4, 2089-1 #### [facility] ([id number]) [address] [place] [address], [address] [place] [address] #### 2998-3 #### [facility] ([id number]) [address] [place] [address] Triglyceride [Mass/Vol] 442 mg/dL High 27-150 [facility] Comment on above: Performed By: #### C BCA, THYR, CMP, LIVR #### [facility] ([id number]) [address], [place] [address] #### 46284-2, FEPR, 3051-0, 2731-8, 2276-4, 2284-8, 2132-9, 38046-6, 9-1 #### [facility] ([id number]) [address] [place] [address], [address] [place] [address] #### 2998-3 #### [facility] [facility] ([id number]) [address] [place] [address] MR SHOULDER LT WO CONTon MR SHOULDER LT WO CONT MR SHOULDER LT WO CONT HISTORY and Tech Notes: Acute pain of both shoulders PROCEDURE: MRI of the left shoulder COMPARISON: September 20 Right shoulder reported separate FINDINGS: No acute fracture or bone contusion, osteochondral injury or suspicious bone lesion There is mild to moderate degenerative change There is moderate joint effusion. There is moderate fluid in the subacromial subdeltoid bursa. There is mild degenerative change at the AC joint It looks like there is some debris in the subacromial subdeltoid bursal fluid accumulation There is mild subacromial narrowing Subscapularis looks intact Biceps long head tendon and anchor look intact. There may be mild tendinopathy and small intrasubstance tear in the proximal biceps long head tendon and intracapsular segment near the biceps anchor. No full-thickness rupture No acute capsular rupture is seen There is degeneration blunting of the posterior labrum No adjacent cyst or ganglion. There is a large partial-thickness delaminating tear in the supraspinatus and anterior infraspinatus sparing some of the bursal sided fibers There is however a small fluid-filled gap overlying the anterior greater tuberosity consistent with a small full-thickness extension of the tear The heterogeneous tendon stump is not significantly retracted There is mild atrophy of the supraspinatus and to lesser extent infraspinatus muscle. . . IMPRESSION: There is greater left-sided joint effusion and bursal fluid accumulation suggesting probable more acute or subacute rotator cuff tendinopathy and tear compared to the more chronic appearance on the right side There is a large partial-thickness delaminating tear in the supraspinatus and anterior infraspinatus sparing some of the bursal sided fibers There is a small full-thickness extension at the anterior distal supraspinatus with a small fluid-filled gap overlying the anterior greater tuberosity There is little or no retraction of the edematous tendon stump medial from the greater tuberosity There is mild muscle atrophy greater in the supraspinatus There may be a small intrasubstance tear at the proximal biceps long head tendon and intracapsular segment and/or biceps anchor without full-thickness rupture or avulsion Finalized by Edilberto Sales MD on 10/28/2023 9:51 AM Normal [facility] MR SHOULDER RT WO CONTon MR SHOULDER RT WO CONT MR SHOULDER RT WO CONT HISTORY and Tech Notes: Acute pain of both shoulders PROCEDURE: MRI of the right shoulder COMPARISON: September 20 FINDINGS: [id number]-[id number] degenerative change There is slight elevation of the humeral head toward the acromion with some bone remodeling at the inferior margin of the acromion There is a small joint effusion with fluid along the biceps sheath. There is trace fluid in the bursa. There is degenerative change at the AC joint with mild edema and bone hypertrophy. There is tendinopathy in the subscapularis which looks heterogeneous. No full-thickness tear There is slight medial displacement of the upper biceps long head tendon with tendinopathy and high-grade partial-thickness intrasubstance tear of the intracapsular segment and biceps anchor No capsular rupture or avulsion is seen. There is a blunted appearance of the posterior labrum No adjacent cyst or ganglion. Large chronic appearing full-thickness tear of the supraspinatus and infraspinatus tendons with severe retraction to the level of the glenoid fossa. Severe muscle atrophy The teres minor remains preserved . . IMPRESSION: Large chronic appearing full-thickness tear of the supraspinatus and infraspinatus tendon There is severe retraction of the tendon stump to the level of the glenoid and there is severe fatty infiltration and atrophy of the musculature There is mild to moderate DJD at the glenohumeral joint with elevation of the humeral head toward the undersurface of the acromion and chronic bone remodeling and pseudoarticulation at the inferior margin of the acromion Tendinopathy in the subscapularis with medial displacement of the proximal biceps long head tendon, severe tendinopathy and partial-thickness intrasubstance tear of the intracapsular segment and biceps anchor Trace effusion and bursal fluid accumulation Finalized by Edilberto Sales MD on 10/28/2023 9:43 AM Normal [facility] Parathyrin.intact [Mass/Vol] on 10-28-2023 PTH INTACT 80 pg/mL Normal [facility] Comment on above: Performed By: #### C BCA, THYR, CMP, LIVR ####[facility] ([id number])[address] [place] [address]#### 10431-3, FEPR, 3051-0, 2731-8, 2276-4, 2284-8, 2132-9, 71505-8, 2088-1 ####[facility] ([id number])[address] [place] [address], [address], [place] [address]#### 2998-3 ####[facility] ([id number])[address] [place] [address] THYROID PROFILEon 10-28-2023 Free T4 [Mass/Vol] 0.98 ng/dL Normal 0.61-1.60 [facility] Comment on above: Performed By: #### C BCA, THYR, CMP, LIVR #### [facility] ([id number]) [address] [place] [address] #### 89292-2, FEPR, 3051-0, 2731-8, 2276-4, 2284-8, 2-9, 61837-6, 2088-1 #### [facility] ([id number]) [address] [place] [address], [address] [place] [address] #### 2998-3 #### [facility] ([id number]) [address] [place] [address] TSH 3.27 uIU/mL Normal 0.49-4.67 [facility] Comment on above: Performed By: #### C BCA, THYR, CMP, LIVR #### [facility] ([id number]) [address] [place] [address] #### 63396-6, FEPR, 3051-0, 2731-8, 2276-4, 2284-8, 2132-9, 51891-7, 2088-1 #### [facility] ([id number]) [address] [place] [address], [address] [place] [address] #### 2998-3 #### [facility] ([id number]) [address] [place] [address] Thiamine (Bld) [Mass/Vol]on 10-28-2023 THIAMIN VITAMIN B1 See Below Normal [facility] Comment on above: Result Comment: NOTE TEST RESULT FLAG UNIT REF.RANGE --- Vitamin B1 (TDP), Whole Blood 157.7 nmol/L 84.3-213.3 This assay measures the concentration of thiamine diphosphate (TDP), the primary active form of vitamin B1. Approximately 90 percent of vitamin B1 present in whole blood is TDP. Thiamine and thiamine monophosphate, which comprise the remaining 10 percent, are not measured. This test was developed and its performance characteristics determined by [facility] [place] ([facility]). It has not been cleared or approved by the FDA. [facility] is regulated under CLIA as qualified to perform high-complexity testing. This test is used for clinical purposes. It should not be regarded as investigational or for research. Test Performed By: [facility] [address] [place] [address] Microbiology Lab Manager: Aldo Anne III, M.D. CLIA #[id number] Performed By: #### C BCA, THYR, CMP, LIVR ####[facility] ([id number])[address] [place] [address]#### 81737-0, FEPR, 3051-0, 2731-8, 2276-4, 2284-8, 2132-9, 49357-1, 2089-1 ####[facility] ([id number])[address] [place] [address], [address] [address]#### 2998-3 ####[facility] ([id number])[address] [place] [address] VITAMIN B12on 10-28-2023 Cobalamin (Vitamin B12) [Mass/Vol] 825 pg/mL Normal 180-914 [facility] Comment on above: Performed By: #### C BCA, THYR, CMP, LIVR ####[facility] ([id number])[address] [place] [address]#### 58564-2, FEPR, 3051-0, 2731-8, 2276-4, 2284-8, 2132-9, 74871-3, 2088- ####[facility] ([id number])[address] [facility], [address], [place] [address]#### 2998-3 ####[facility] ([id number])[address] [place] [address] Vitamin D+Metabolites [Mass/ Vol]on 10-28-2023 VITAMIN D 25 HYD TOT 29.0 ng/mL Low 30-100 [facility] Comment on above: Result Comment: Vitamin D status 25 [place] Vitamin D Deficiency <20 ng/mL Insufficiency 20-29 ng/mL Sufficiency 30-100 ng/mL Toxicity >100 ng/mL NOTE: A pediatric reference range has not been established by the plant and machinery valuer of this kit. The [place] [employer] recommends a Vitamin D level of = or >20ng/mL in infants and children. Performed By: #### C BCA, THYR, CMP, LIVR ####[facility] ([id number])[address] [place] [address]#### 46409-0, FEPR, 3051-0, 2731-8, 2276-4, 2284-8, 2132-9, 50310-1, 2088- ####[facility] ([id number])[address] [facility], [address], [place] [address]#### 2998-3 ####[facility] ([id number])[address] [place] [address] FL FLUOROSCOPY UP TO 1 HOURo n 10-27-2023 FL FLUOROSCOPY UP TO 1 HOUR FL FLUOROSCOPY UP TO 1 HOUR FL FLUOROSCOPY UP TO 1 HOUR CLINICAL HISTORY: Pain. MRI arthrogram COMPARISON: None. FINDINGS: Fluoro Time: 0.2 minutes Reference Air Kerma: 0.4 mGy Number of images: 1 Patient was brought for fluoroscopic injection for bilateral shoulder arthrograms. Patient stated she was unaware that injection into the shoulder joints was to be performed prior to MRI. She stated she has acute on chronic shoulder pain bilaterally, not currently being seen by orthopedic surgeon. Discussion was had with the patient regarding indications for arthrogram versus routine shoulder MRI. Patient stated she would be unlikely to pursue operative intervention within the next 4-5 years, and would prefer to defer intra-articular injection at this time (made aware that she may require MRI arthrogram in the future should surgery be pursued at a later date). Above was also discussed via telephone with JESÚS [place] at the time of procedure timeout (10/27/2023 2:35PM) by Dr. Demetrio Yancey. As such, bilateral fluoroscopic arthrograms were deferred. Patient will proceed with routine noncontrasted bilateral shoulder MRIs. Single fluoroscopic image of the right shoulder demonstrates metallic probe over the medial humeral head with glenohumeral and a.c. osteoarthrosis IMPRESSION: Single fluoroscopic image of the right shoulder prior to planned bilateral MRI shoulder arthrograms. Fluoroscopic arthrographic shoulder injections were subsequently deferred after discussion with the patient and referring provider. See above Finalized by Demetrio Yancey MD on 10/27/2023 2:45 PM Normal [facility] PET CT SKULL TO THIGHon 10-[address] SKULL TO THIGH PET CT SKULL TO THIGH EXAM: FDG PET/CT INDICATION: Malignant neoplasm of upper-inner quadrant of right breast in female, estrogen receptor positive (CMS-HCC) ; Malignant neoplasm of upper-inner quadrant of right female breast, unspecified estrogen receptor status (CMS-HCC); Recurrent malignant neoplasm of right breast (CMS-HCC) COMPARISON: 10/02/2022 PROCEDURE: PET/CT was performed following intravenous administration of 15.7 mCi F-18 FDG with images obtained from the skull base through the mid thighs. Fasting glucose was 101 mg/dL at the time of administration. Injection site: Left antecubital fossa. CT was performed utilizing free breathing technique and nondiagnostic collimation for the purposes attenuation correction and localization of radiotracer activity. FINDINGS: Overall PET and CT image quality and inter-modality registration are satisfactory. Liver Reference: SUVmean 2.7 Blood Pool: SUVmean 1.7 Head and Neck: Prominent FDG activity at the level of the vocal cords may be due to talking during the scan. Additional new FDG avidity near the region of the bilateral thyroid gland is nonspecific (measuring up to SUV max of 8). Thorax: Physiologic FDG uptake within the thorax. Abdomen and Pelvis: Physiologic FDG uptake within the abdomen/pelvis. Postoperative changes of gastrectomy, cholecystectomy, appendectomy. Osseous Structures: Physiologic FDG uptake within the osseous structures. Lower Extremities: Muscular activation may be due to motion during the exam is scanned. CT Findings: Polypoid mucosal thickening of the left maxillary sinus. Left chest wall port. Right axillary clips. Degenerative changes and pseudoarthrosis of the left L5 transverse process with the S1 sacral ala. Mesenteric stranding may reflect the sequela of colitis IMPRESSION: * No convincing evidence of disease progression. * New FDG avidity near the region of the bilateral thyroid gland is nonspecific. Consider dedicated thyroid ultrasound and correlation with thyroid lab values, to exclude underlying thyroid nodule or thyroiditis. Finalized by Josh Taylor on 10/26/2023 1:29 PM Normal [facility] PAP ACOG PANEL 2: 30 to 65on 10-02-2022 . . Normal [facility] Comment on above: Result Comment: Perf ormed at: WB Performed By: #### [id number] #### [facility] [address] [address] [address] Asha Vasquez Age Gdln ACOG Testing 30-65 Normal [facility] Comment on above: Performed By: #### [id number] #### [facility] [address] [address] [address] Asha Vasquez DIAGNOSIS: Comment [facility] Comment on above: Result Comment: NEGA TIVE FOR INTRAEPITHELIAL LESION OR MALIGNANCY. Performed at: WB Performed By: #### [id number] #### [facility] [address] [place] [address] Dr. Asha Vasquez HPV Aptima Negative Normal Negative [facility] Comment on above: Result Comment: This nucleic acid amplification test detects fourteen high-risk HPV types (16,18,31,33,35,39,45,51,52,56,58,59,66,68) without differentiation. Performed at: =G Performed By: #### [id number] #### [facility] [address] [place] [address] Dr. Asha Vasquez HPV Genotype Reflex Comment Normal [facility] Comment on above: Result Comment: Crit eria not met, HPV Genotype not performed. Performed at: WB Performed By: #### [id number] #### [facility] [address] [place] [address] Dr. Asha Vasquez Methodology: Comment Normal [facility] Comment on above: Result Comment: This liquid based ThinPrep(R) pap test was screened with the use of an image guided system. Performed at: WB Performed By: #### 4 [id number] #### [facility] [address] [place] [address] Dr. Asha Vasquez Note: Comment Normal [facility] Comment on above: Result Comment: The Pap smear is a screening test designed to aid in the detection of premalignant and malignant conditions of the uterine cervix. It is not a diagnostic procedure and should not be used as the sole means of detecting cervical cancer. Both false-positive and false-negative reports do occur. . Performed at: WB Performed By: #### [id number] #### [facility] [address] [place] [address] Dr. Asha Vasquez Performed by: Comment Normal [facility] Comment on above: Result Comment: [employer] Consultant (ASCP) Performed at: WB Performed By: #### 4 [id number] #### [facility] [address] [place] [address] Dr. Asha Vasquez Specimen adequacy: Comment Normal [facility] Comment on above: Result Comment: Sati sfactory for evaluation. No endocervical component is identified. Performed at: WB Performed By: #### 4 [id number] #### [facility] [address] [address] [address] Asha Vasquez MRI Breast w/ + w/o Contrast Bilateralon 05-20-2017 Bilirubin (total) BREAST MRI OF BOTH BREASTS : 05/13/2017CLINICAL: Malignant Neoplasm Of Upper-Inner Quadrant Of Right Female Breast 2014. Yearly check.Comparison is made to exams dated: 04/16/2015 breast MRI, 09/16/2015 localization - [facility], 10/20/2016 mammogram, and 03/12/2016 [facility].Interpretation of this MRI was correlated with available mammograms, ultrasounds, previous MRI scans, and clinical information. Informed consent was obtained from the patient. Axial T1, T2, sagittal T1, and coronal images were obtained at 1.5 mm intervals with a dedicated breast coil. Post processing was performed including color parametric mapping, 2D, and 3D multiplanar reconstruction. The study is sub-optimal due to injection failure.There are scattered fibroglandular elements in both breasts.IMPRESSION: BENIGNThe IV infiltrated and no contrast was injected. Patient will return for post contrast images, at which time a full report will follow.Latha Andrews [facility]/penrad:05/20/2017 09:27:15Imaging Technologist: Jazzmine [place] RT(R), [facility] BI-RADS: 2 Benign Final Dictated by: Latha Andrews MDictated DT/TM: 05/20/2017 9:27 amSigned by: Latha Andrews MDigned (Electronic Signature): 05/20/2017 9:27 am(If Report Is Signed, Electronically Signed in Other Vendor System) Normal [facility] MRI Z-Addtl. Images to Previ ous Studyon 05-20-2017 MRI Z-Addtl. Images to Previous Study BREAST MRI OF BOTH BREASTS : 05/20/2017CLINICAL: History Of Breast Cancer.Comparison is made to exams dated: 05/13/2017 breast MRI - [facility], 10/20/2016 mammogram, 03/12/[address] [facility], 09/16/2015 localization, and 04/16/2015 breast MRI - [facility].Interpretation of this MRI was correlated with available mammograms, ultrasounds, previous MRI scans, and clinical information. Informed consent was obtained from the patient. 12 cc of gadolinium contrast was injected. Axial T1, T2, sagittal T1, pre and post contrast T1, and coronal images were obtained at 1.5 mm intervals with a dedicated breast coil. Pre and post contrast images were obtained at 1.5 minute intervals. Post processing was performed including computer generated subtraction, color parametric mapping, 2D, and 3D multiplanar reconstruction.There are scattered fibroglandular elements in both breasts.Bilateral background breast enhancement is mild.There is architectural distortion in the right breast at 11 o'clock posterior depth. This shows no enhancement. This correlates with mammography findings.No other findings are seen in either breast. There are no abnormalities seen in the thorax, bones of the thorax, mediastinum, liver, lungs, axillary nodes region, supraclavicular nodes, infraclavicular nodes, or internal mammary nodes.IMPRESSION: BENIGNThe architectural distortion in the right breast is consistent with a lumpectomy site and is benign.Return to annual mammogram and a breast MRI screening schedule is recommended.The patient was notified of the results.Latha Andrews [facility]/carmen:05/20/2017 09:24:16Imaging Technologist: Cash Hernandez, [facility] sent: Prev CA-Normal ExamMRI BI-RADS: 2 Benign Final Dictated by: Latha Andrews MDated DT/TM: 05/20/2017 9:24 amSigned by: Latha Andrews MDigned (Electronic Signature): 05/20/2017 9:24 am(If Report Is Signed, Electronically Signed in Other Vendor System) Normal [facility] Vital Signs Date Time Vital Sign Value Performing Clinician Faci lity 11-06-2024 16:41-0500 Body mass index (BMI) [Ratio] 43.85 kg/m2 [employer] Work Phone: [facility] 11-06-2024 16:41-0500 Body weight 127.01 kg Manasa Maribel DO Work Phone: [facility] 11-06-2024 16:41-0500 Diastolic blood pressure 70 mm[Hg] Manasa Maribel DO Work Phone: [facility] 11-06-2024 16:41-0500 Systolic blood pressure 120 mm[Hg] Manasa Maribel DO Work Phone: [facility] Encounters Encounter Date Encounter Type Care Provider Facility Start: 01-05-2025 ambulatory Dylan oates II Facility:[facility] Start: 12-01-2024 End: 12-01-2024 ambulatory Jesús [place] Facility:[facility] Start: 11-07-2024 End: 11-07-2024 Telephone encounter Rajeev Bass DPM Work Phone: [facility] Comment on above: Advice Only (Request ing Previous X-Ray Images) Start: 11-06-2024 End: 11-06-2024 Patient encounter procedure Manasa Maribel DO Work Phone: [facility] Work Phone: Start: 11-06-2024 End: 11-06-2024 Periodic preventive med est patient 40-64yrs Manasa Maribel DO Work Phone: [facility] Comment on above: Well woman exam with routine gynecological exam; Breast cancer screening by mammogram; Postmenopausal state Start: 11-06-2024 End: 11-06-2024 ambulatory MANASA MARIBEL Not Available Start: 11-06-2024 End: 11-06-2024 Bamboo flowsheet Manasa Maribel DO Work Phone: [facility] Start: 11-06-2024 End: 11-09-2024 Bamboo flowsheet Manasa Maribel DO Work Phone: [facility] Start: 11-06-2024 End: 11-09-2024 Clinisync Result Encounter Manasa Maribel DO Work Phone: [facility] External Department Unsolicited Start: 07-24-2024 End: 07-24-2024 ambulatory Dale Andino Jr Facility:[facility] Start: 05-17-2024 End: 05-17-2024 ambulatory KATHY N KIMBROUGH [facility] Start: 05-16-2024 End: 05-16-2024 ambulatory [facility] Start: 01-03-2024 End: 01-31-2024 ambulatory [facility] Start: 12-21-2023 End: 12-21-2023 ambulatory [facility] Start: 12-09-2023 End: 12-31-2023 ambulatory [facility] Start: 12-06-2023 End: 12-31-2023 ambulatory [facility] Start: 11-17-2023 End: 11-18-2023 ambulatory [facility] Start: 10-28-2023 End: 10-28-2023 ambulatory [facility] Start: 10-27-2023 End: 10-27-2023 ambulatory [facility] Start: 10-27-2023 End: 10-27-2023 ambulatory [facility] Start: 10-22-2023 End: 10-22-2023 ambulatory [facility] Start: 09-23-2022 End: 09-23-[address] MANASA LÓPEZ Facility: Start: 05-19-2017 End: 05-20-2017 Ambulatory PEDRO DOUGLAS Facility:[facility] Start: 05-12-2017 End: 05-13-2017 Ambulatory PEDRO DOUGLAS Facility:[facility] Procedures Date Procedure Procedure Detail Performing Clinician Start: 11-06-2024 IGP,APTIMA HPV,AGE GDLN Manasa López DO Work Phone: Start: 05-17-2024 Follow-up visit Follow-up KATHY KIMBROUGH Start: 12-09-2023 Follow-up visit Follow-up PEDRO QUINTANILLA Start: 09-30-2018 Mammography Manasa valladares DO Work Phone: Plan of Treatment Date Care Activity Detail Author Start: 11-12-2025 End: 11-12-2025 Patient encounter procedure 11/12/2025 4:00 PM EST Office Visit [facility] [address] [id number] Manasa López, DO [address] [place] [address] [facility] Start: 11-06-2024 End: 11-06-2024 Patient encounter procedure 11/06/2024 4:00 PM EST Office Visit [facility] [address] [place] [place] [id number] Manasa López, DO [address] [place] [address] Arrived [facility] Comment on above: Arrived Start: 11-06-2024 End: 11-06-2025 DXA Skeletal system Views for bone density DEXA bone density Imaging Routine Postmenopausal state Expected: 11/06/2024 (Approximate), Expires: 11/06/2025 [facility] Work Phone: Comment on above: Expected: 11/06/2024 (Approximate), Expires: 11/06/2025 Start: 09-30-2019 Screening for malignant neoplasm of breast Mammogram [facility] Start: 1997 Screening for malignant neoplasm of cervix [facility] Start: 1988 Screening for malignant neoplasm of cervix Pap Smear [facility] Start: 1967 Screening for malignant neoplasm of colon [facility] THIN PREP TIS PAP AN D HR HPV DNA THIN PREP TIS PAP AND HR HPV DNA Pathology and Cytology Routine Well woman exam with routine gynecological exam Ordered: 11/06/2024 [facility] Comment on above: Ordered: 11/06/2024 Payers Date Payer Category Payer Private Health Insurance [employer] [id number] 2024 Unknown [id number] 2024 Self-pay 2017 Unknown 1967 Unknown [id number] 2.16840.1.695842.3.579.2. 593 1967 Unknown [id number] 2.16840.1.140213.3.579.2. 1285 1967 Unknown [id number] 2.16840.1.728503.3.579.2. 1285 1967 Unknown [id number] 2.16840.1.584209.3.579.2. 1285 1967 Unknown [id number] 2.16840.1.192112.3.579.2. 1285 1967 Unknown [id number] 2.16.840.1.963411.3.579.2. 1285 1967 Unknown [id number] 2.16840.1.231701.3.579.2. 1285 1967 Unknown [id number] 2.16840.1.809657.3.579.2. 1285 1967 Unknown [id number] 2.16840.1.359567.3.579.2. 1285 1967 Unknown [id number] 2.16.840.1.035615.3.579.2. 1285 1967 Unknown [id number] 2.16840.1.882459.3.579.2. 1285 1967 Unknown [id number] 2.16840.1.687143.3.579.2. 1285 1967 Unknown [id number] 2.16.840.1.460877.3.579.2. 1286 1967 Unknown [id number] 2.16.840.1.803636.3.579.2. 1286 1967 Unknown [id number] 2.16.840.1.120666.3.579.2. 1286 1967 Unknown [id number] 2.16.840.1.919125.3.579.2. 1259 1959 Unknown [id number] Unknown [id number] 2.16.840.1.075768.3.579.2. 531 Unknown [id number] 2.16.840.1.356538.3.579.2. 531 Unknown [id number] 2.16.840.1.183385.3.579.2. 531 Social History Date Type Detail Facility Start: 06-11-2023 Tobacco smoking status NHIS Never sm oked tobacco [facility] Start: 06-11-2023 Tobacco use and exposure Smoke less tobacco non-user [facility] Start: 11-02-2024 End: 11-06-2024 Alcoholic beverage intake Ex-drinker (finding) [facility] Start: 10-22-2023 End: 11-19-2023 History of Social function [facility] Start: 10-22-2023 End: 11-19-2023 Alcohol Use Disorder Identification Test - Consumption [AUDIT-C] [facility] How often to you hav e a drink containing alcohol? Monthly or less [facility] How many standard dr inks containing alcohol do you have on a typical day? 1 or 2 [facility] Frequency of Binge Drinking Not on file [facility] Start: 06-11-2023 Alcohol Comment Holidays and a couple times a year [facility] Start: 1965 Sex assigned at Female [facility] Start: 06-09-2023 Gender identity Identifies as female gender (finding) [facility] Start: 06-09-2023 Sexual orientation Heterosexual (fin david) [facility] Telephone encounter Note 11-07-2024 Telephone Encounter - Meek Weiss - 11/07/2024 3:04 PM EST Note Date & Type Note Facility 11-07-2024 Telephone encount er Note Patient wanted to see if her previous x-rays taken in Aug 2022, that showed bone spurs, is the location(s) she is experiencing current pain. I informed patient that we can only create the disk and have her pick it up at our office. Patient works in [place] during our hours of operations, so she is unable to come in. No further action at this time. [facility] Note 11-07-2024 Telephone Encounter - Meek Weiss - 11/07/2024 3:04 PM ESTTelephone Encounter - Meek Weiss - 11/07/2024 1:19 PM EST Note Date & Type Note Facility 11-07-2024 Miscellaneous Notes Formattin g of this note might be different from the original. Patient wanted to see if her previous x-rays taken in Aug 2022, that showed bone spurs, is the location(s) she is experiencing current pain. I informed patient that we can only create the disk and have her pick it up at our office. Patient works in [place] during our hours of operations, so she is unable to come in. No further action at this time. Patient called requesting her image of the x-ray she had taken at our office. She tried viewing it on MyChart, but it isn't available. She did request we email her the images if possible. documented in this encounter [facility] Telephone encounter Note 11-07-2024 Telephone Encounter - Meek Weiss - 11/07/2024 1:19 PM EST Note Date & Type Note Facility 11-07-2024 Telephone encount er Note Patient called requesting her image of the x-ray she had taken at our office. She tried viewing it on MyChart, but it isn't available. She did request we email her the images if possible. [facility] History of Present illness Narrative 11-06-2024 Tamika Montoya, NURSE OBGYN - 11/06/2024 4:00 PM EST Note Date & Type Note Facility 11-06-2024 History of Presen t illness Narrative Reason for Appointment: Patient ID: Yumi Blankenship is a 59 y.o. female who presents for Well Women Visit Patient presents today for Annual Exam. MEDICATIONS Current Outpatient Medications Medication Instructions acetaminophen (TYLENOL) 1,000 mg, Every 6 hours PRN Calcium Carb-Cholecalciferol (CALCIUM 500 + D PO) 1 each, Daily cyanocobalamin (VITAMIN B-12) 100 mcg, Daily gabapentin (Neurontin) 600 MG tablet 1 capsule, As needed Iron-Vit C-Vit S96-Bwotl Acid (IRON 100 PLUS PO) 1 each, Daily Potassium 99 MG tablet 1 each, Daily ALLERGIES Allergies Allergen Reactions Ambien [Zolpidem] Palpitations Wound Dressing Adhesive Dermatitis Tegaderm- blister Redness, irritation Augmentin [Amoxicillin-Pot Clavulanate] Yeast Infection PROBLEMS Active Ambulatory Problems Diagnosis Date Noted No Active Ambulatory Problems Resolved Ambulatory Problems Diagnosis Date Noted No Resolved Ambulatory Problems Past Medical History: Diagnosis Date Anemia Anxiety Arthritis Breast cancer (CMS/HCC) Cataract Foot fracture, right History of detached retina repair Morbid obesity (CMS/[facility]) Neuropathy HISTORY PAST MEDICAL HISTORY SOCIAL HISTORY Past Medical History: Diagnosis Date Anemia Anxiety Arthritis Breast cancer (CMS/HCC) 2014 and 2017 Bilateral Cataract bilateral Foot fracture, right 5th metatarsal, closed. 11/2019 History of detached retina repair Morbid obesity (CMS/HCC) Neuropathy Social History Tobacco Use Smoking status: Never Smokeless tobacco: Never Substance Use Topics Alcohol use: Not Currently Comment: Holidays and a couple times a year Drug use: Never FAMILY HISTORY Family History Problem Relation Name Age of Onset Cancer Mother Janie Arthritis Mother Janie Vision loss Mother Janie Cancer Father West Diabetes Father West Hypertension Father [place] Heart disease Father [place] Arthritis Father [place] Cancer Other spouse SURGICAL HISTORY Past Surgical History: Procedure Laterality Date APPENDECTOMY April 1990 BI US GUIDED BREAST LOCALIZATION AND BIOPSY LEFT Left 09/30/2018 BI US GUIDED BREAST LOCALIZATION AND BIOPSY LEFT 09/30/2018 BREAST SURGERY Multiple CATARACT EXTRACTION, BILATERAL 06/2020 SECTION, LOW TRANSVERSE 06/[address] ANGIOGRAM HEART CORONARY 06/26/2022 CT ANGIOGRAM TAVR 06/26/2022 GASTRIC BYPASS 05/18/2023 gastric sleeve LASER ABLATION uterine MASTECTOMY Bilateral 11/2018 OTHER SURGICAL HISTORY 12/2018 Port, and then removed 08/17/19, port currently inplace left chest 11/2019 OTHER SURGICAL HISTORY 2007 Discectomy [place] KNEE SCOPE,DIAGNOSTIC 12/2013 RETINAL DETACHMENT SURGERY 07/2020 SPINE SURGERY April 07, 2007 TUBAL LIGATION [id number] US GUIDED FINE PERCUTANEOUS ASPIRATION 04/26/2020 US GUIDED FINE PERCUTANEOUS ASPIRATION 04/26/2020 REVIEW OF SYSTEMS Review of Systems: Review of Systems All other systems reviewed and are negative. OBJECTIVE Objective: Physical Exam Constitutional: Appearance: Normal appearance. She is well-developed. Genitourinary: Vulva normal. Genitourinary Comments: Bilateral Mastectomy Breasts: Right: Absent. Left: Absent. Cardiovascular: Rate and Rhythm: Normal rate and regular rhythm. Pulmonary: Effort: Pulmonary effort is normal. Breath sounds: Normal breath sounds. Abdominal: General: Bowel sounds are normal. There is no distension. Palpations: Abdomen is soft. Tenderness: There is no abdominal tenderness. There is no guarding or rebound. Musculoskeletal: General: No swelling. Normal range of motion. Right lower leg: No edema. Left lower leg: No edema. Neurological: Mental Status: She is alert and oriented to person, place, and time. Skin: General: Skin is warm and dry. Psychiatric: Mood and Affect: Mood normal. Behavior: Behavior normal. Vitals and nursing note reviewed. Exam conducted with a seamless tube mill operator present. Vitals: Estimated body mass index is 43.85 kg/m as calculated from the following: Height as of 06/11/23: 5' 7 . Weight as of this encounter: 280 lb. BP: 120/70 No LMP recorded. Patient is postmenopausal. ASSESSMENT & PLAN ICD-10-CM 1. Well woman exam with routine gynecological exam Z01.419 THIN PREP TIS PAP AND HR HPV DNA 2. Breast cancer screening by mammogram Z12.31 CANCELED: Bilateral screening mammogram CANCELED: Bilateral screening mammogram 3. Postmenopausal state Z78.0 DEXA bone density Annual Exam: Patient presents today for an annual exam. Patient states she is doing well and has no complaints. Dexa Scan order given, Patient does not have mammograms due to bilateral mastectomy. Pap was obtained without difficulty. Orders Placed This Encounter Procedures DEXA bone density Follow Up: Patient is to return in one year for annual unless needed otherwise. Documented by Tamika Montoya LPN on behalf of: Manasa López DO documented in this encounter [facility] Evaluation note Note Date & Type Note Facility Evaluation note Diagnosis Well woman exam with routine gynecological exam Routine gynecological examination Breast cancer screening by mammogram Postmenopausal state Asymptomatic postmenopausal status (age-related) (natural) documented in this encounter [facility] Summary Purpose Family History No Family History Records FoundNo Family History Records FoundNo Family History Records FoundNo Family History Records FoundNo Family History Records FoundNo Family History Records Found Advance Directives No Advanced Directives Records FoundNo Advanced Directives Records FoundNo Advanced Directives Records FoundNo Advanced Directives Records FoundNo Advanced Directives Records FoundNo Advanced Directives Records Found Additional Source Comments INFORMATION SOURCE (unrecogn ized section and content) DATE CREATED AUTHOR 04/27/2018 [facility] DATE CREATED AUTHOR AUTHOR'S ORGANIZ ATION 10/03/2022 [facility] DATE CREATED AUTHOR AUTHOR'S ORGANIZ ATION 05/20/2024 [facility] DATE CREATED AUTHOR AUTHOR'S ORGANIZ ATION 05/21/2024 [facility] DATE CREATED AUTHOR AUTHOR'S ORGANIZ ATION 11/12/2024 [facility] DATE CREATED AUTHOR AUTHOR'S ORGANIZ ATION 02/05/2025 [facility] Care Teams (unrecognized sec tion and content) [employer] Relationship Specialty Start Date End Date Jesús Holguin MD [address] [place] [address] PCP - General Family Medicine 06/10/23 [employer] Relationship Specialty Start Date End Date Jesús Holguin MD [address] [place] [address] PCP - General Family Medicine 06/10/23 [employer] Relationship Specialty Start Date End Date Jesús Holguin MD [address] [place] [phone] PCP - General Family Medicine 06/10/23 [employer] Relationship Specialty Start Date End Date Jesús Holguin MD [address] [place] [id number] PCP - General Family Medicine 06/10/23 Reason for Visit (unrecogniz ed section and content) Reason Comments Well Women Visit Reason Onset Date Comments Advice Only 11/07/2024 Requesting Previ ous X-Ray Images FOR RECORDS PERTAINING TO PATIENTS WHO ARE OR HAVE BEEN ENROLLED IN A CHEMICAL DEPENDENCY/SUBSTANCEABUSE PROGRAM, SOME INFORMATION MAY BE OMITTED. This clinical summary was aggregated from multiple sources. Caution should be exercised in using it in the provision of clinical care. This summary normalizes information from multiple sources, and as a consequence, information in this document may materially change the coding, format and clinical context of patient data. In addition, data may be omitted in some cases. CLINICAL DECISIONS SHOULD BE BASED ON THE PRIMARY CLINICAL RECORDS. [facility] [employer] [facility] provides no warranty or guarantee of the accuracy or completeness of information in this document.
== END 2025-06-20 14:22 | disposition home or self-care (01) ==
LOC: RAD 14:24
PROVIDERS: PCP Family Medicine; Visit Provider Family Medicine
DX: M79.671 Pain in right foot (principal); M77.31 Calcaneal spur, right foot
CPT/HCPCS: 73610; 73620